=== PATIENT | female | born 1975 | race Caucasian/White ===

== ENCOUNTER → 2018-07-08 | Outpatient (CLI) | payer BC ==
--- NOTE | 2018-07-09 06:22 | MR ---
EXAMINATION TYPE: MR brain wo con DATE OF EXAM: 07/08/2018 COMPARISON: NONE HISTORY: Headaches, dizziness TECHNIQUE: Multiplanar, multisequence imaging of the brain and brainstem is performed without IV cont rast. FINDINGS: Diffusion weighted images demonstrate no evidence of a recent infarct or other diffusion abnormality. There is no extraaxial fluid collection or significant white matter signal abnormality. The ventricu lar system and cisternal spaces are normal in size and appearance. The brain volume is age appropria te. Midline structures demonstrate normal morphology. The craniocervical junction appears within normal limits. Normal vascular flow voids are present. The visualized sinuses are clear and the globes are i ntact. No significant increased fluid signal is seen in mastoid air cells bilaterally. IMPRESSION: No suspicious finding is seen to account for patient's symptoms of headaches and dizzines s.
== END | disposition home or self-care (01) ==
LOC: RADMRIMAIN 19:57
PROVIDERS: ATTEND Family Medicine
DX: R51 Headache (principal)
CPT/HCPCS: 70551

== ENCOUNTER → 2018-08-27 | Outpatient (CLI) | payer BC ==
--- NOTE | 2018-08-28 10:07 | ECHOF ---
Referral Reason: MEASUREMENTS -------- HEIGHT: 167.6 cm WEIGHT: 65.8 kg BP: RVIDd: 3.0 cm (< 3.3) IVSd: 0.8 cm (0.6 - 1.1) LVIDd: 4.2 cm (3.9 - 5.3) LVPWd: 0.9 cm (0.6 - 1.1) IVSs: 1.3 cm LVIDs: 2.1 cm LVPWs: 1.4 cm LAESV Index (A-L): 14.36 ml/m Ao Diam: 2.6 cm (2.0 - 3.7) AV Cusp: 1.8 cm (1.5 - 2.6) LA Diam: 2.6 cm (2.7 - 3.8) MV EXCURSION: 10.933 mm (> 18.000) MV EF SLOPE: 144 mm/s (70 - 150) EPSS: 0.5 cm MV E Jagdish: 1.12 m/s MV DecT: 170 ms MV A Jagdish: 0.87 m/s MV E/A Ratio: 1.29 RAP: 5.00 mmHg RVSP: 27.14 mmHg FINDINGS -------- Sinus rhythm. This was a technically good study. The left ventricular size is normal. Left ventricular wall thickness is normal. Overall left vent ricular systolic function is normal with, an EF between 55 - 60 %. The right ventricle is normal in size. Normal LA size by volume 22+/-6 ml/m2. The right atrial size is normal. Interatrial and interventricular septum intact. The aortic valve is trileaflet and appears structurally normal. Mild mitral regurgitation is present. 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 Moderate tricuspid regurgitation present. The right ventricular systolic pressure, as measured by D oppler, is 27.14mmHg. There is no pulmonic regurgitation present. The aortic root size is normal. Normal inferior vena cava with normal inspiratory collapse consistent with estimated right atrial pre ssure of 5 mmHg. Echo free space may represent effusion or a pericardial fat pad. CONCLUSIONS -------- 1. Sinus rhythm. 2. This was a technically good study. 3. The left ventricular size is normal. 4. Left ventricular wall thickness is normal. 5. Overall left ventricular systolic function is normal with, an EF between 55 - 60 %. 6. The right ventricle is normal in size. 7. Normal LA size by volume 22+/-6 ml/m2. 8. The right atrial size is normal. 9. Interatrial and interventricular septum intact. 10. The aortic valve is trileaflet and appears structurally normal. 11. Mild mitral regurgitation is present. 12. Cannot exclude mitral valve prolapse. 13. , predominately a posteriorly directed jet. 14. Moderate tricuspid regurgitation present. 15. The right ventricular systolic pressure, as measured by Doppler, is 27.14mmHg. 16. There is no pulmonic regurgitation present. 17. The aortic root size is normal. 18. Normal inferior vena cava with normal inspiratory collapse consistent with estimated right atrial pressure of 5 mmHg. 19. Echo free space may represent effusion or a pericardial fat pad. ASSEMBLER CRIMPER: Milagros Toth RDCS
== END ==
LOC: RADECHMAIN 11:22
PROVIDERS: ATTEND Family Medicine
DX: I08.1 Rheumatic disorders of both mitral and tricuspid valves (principal)
CPT/HCPCS: 93306

== ENCOUNTER → 2018-09-09 | Outpatient (CLI) | payer BC ==
--- NOTE | 2018-09-09 22:56 | MR ---
EXAMINATION TYPE: MR lumbar spine wo/w con DATE OF EXAM: 09/09/2018 COMPARISON: NONE HISTORY: Low back pain per order. Pain for over 10 years into right lower extremity per patient. TECHNIQUE: Multiplanar, multisequence images of the lumbar spine is performed without and with IV contrast, util izing 7 mL intravenous Gadavist FINDINGS: Sagittal images of the lumbar spine show vertebral body heights and alignment to appear sat isfactory. There is disc desiccation with mild disc space narrowing and posterior annular tear at L5- S1 level. The intervertebral discs otherwise demonstrate normal heights and hydration. The conus med ullaris is normal in position and signal ending mid L1 level. 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 The bone marrow signal intensity is within normal limits. No suspicious post contrast enhancement is seen. Axial images show the T12-L1, L1-L2, L2-L3, L3-L4 levels all to appear within normal limits. Axial images at L4-L5 level show mild facet degenerative changes bilaterally. Axial images at L5-S1 level show mild facet degenerative changes bilaterally with tiny right paracent ral disc protrusion minimally effacing the anterior thecal sac, bilateral neural foramina are patent. IMPRESSION: Some mild degenerative changes lower lumbar spine most prominent L5-S1 level as detailed above
== END | disposition home or self-care (01) ==
LOC: RADMRIMAIN 17:04
PROVIDERS: ATTEND Family Medicine
DX: M47.817 Spondylosis without myelopathy or radiculopathy, lumbosacral region (principal)
CPT/HCPCS: 72158; A9585

== ENCOUNTER 2020-06-23 17:30 | Inpatient (IN) | payer BC ==
[2020-06-23] MEDS ORDERED: ACETAMINOPHEN TAB 500 MG TAB PO STA (17:44)
[2020-06-23] MEDS ORDERED: SODIUM CHLORIDE 0.9% 1,000 ML IV STA (17:44)
[2020-06-23] MEDS ORDERED: IBUPROFEN 600 MG TAB PO STA (17:44)
[2020-06-23 18:36] LABS: Anisocytosis Slight; Basophils % (A) 0 %; Eosinophils # (A) 0.2 k/uL (0-0.7); Eosinophils % (A) 2 %; HCT 39.3 % (34.0-46.0); HGB 13.2 gm/dL (11.4-16.0); Lymphocytes # (A) 0.9 k/uL (1.0-4.8); Lymphocytes % (A) 8 %; MCH 29.1 pg (25.0-35.0); MCHC 33.7 g/dL (31.0-37.0); MCV 86.4 fL (80.0-100.0); Mean Platelet Volume 7.4; Monocytes # (A) 0.4 k/uL (0-1.0); Monocytes % (A) 4 %; Neutrophils # (A) 9.2 k/uL (1.3-7.7); Neutrophils % (A) 85 %; Platelet Count 263 k/uL (150-450); RBC 4.55 m/uL (3.80-5.40); WBC 10.8 k/uL (3.8-10.6)
[2020-06-23 18:40] LABS: Appearance,Urine Clear (Clear); Bilirubin,Urine Negative (Negative); Blood,Urine Trace (Negative); Color,Urine Light Yellow; Glucose,Urine (UA) Negative (Negative); Ketones,Urine 1+ (Negative); Leukocyte Esterase,Urine Small (Negative); Nitrite,Urine Negative (Negative); Protein,Urine Negative (Negative); RBC,Urine 1 /hpf (0-5); Specific Gravity,Urine 1.009 (1.001-1.035); Squamous Epithelial Cell,Urine 1 /hpf (0-4); Urobilinogen,Urine <2.0 mg/dL (<2.0); WBC,Urine 1 /hpf (0-5)
[2020-06-23 18:47] LABS: ALT 18 U/L (4-34); AST 27 U/L (14-36); African American GFR (CKD) >90 (>60 ml/min/1.73 sqM); Albumin 4.3 g/dL (3.5-5.0); Alkaline Phosphatase 56 U/L (38-126); Anion Gap 10 mmol/L; Blood Urea Nitrogen 12 mg/dL (7-17); Calcium 9.2 mg/dL (8.4-10.2); Carbon Dioxide 20 mmol/L (22-30); Chloride 105 mmol/L (98-107); Glucose 111 mg/dL (74-99); Non-African American GFR(CKD) >90 (>60 ml/min/1.73 sqM); Potassium 4.1 mmol/L (3.5-5.1); Sodium 135 mmol/L (137-145); Total Bilirubin 0.8 mg/dL (0.2-1.3); Total Protein 7.4 g/dL (6.3-8.2)
--- NOTE | 2020-06-23 18:47 | XR ---
EXAMINATION TYPE: XR chest 1V portable DATE OF EXAM: 06/23/2020 COMPARISON: NONE HISTORY: Fever. TECHNIQUE: Single frontal view of the chest is obtained. FINDINGS: There is no focal air space opacity, pleural effusion, or pneumothorax seen. The cardiac silhouette size is within normal limits. The osseous structures are intact. IMPRESSION: No acute process.
--- NOTE | 2020-06-23 19:13 | ED ---
Fever HPI - General Chief Complaint: Fever Stated Complaint: Tachycardia, possible sepsis, fever Time Seen by Provider: 06/23/20 17:43 Source: patient Mode of arrival: ambulatory Limitations: no limitations - History of Present Illness Initial Comments: Patient complains of fever. She saw her physician today. They were concern for sepsis. Patient has palpitations. She has no shortness of breath. She has no belly pain. She has no chest pain. She states that she has a rectal fissure. Her doctor was concerned for bacteremia from this source. She has no dysuria. She has no trouble in her. She is unaware of sick contacts. She has taken no m edicine for her symptoms. - Related Data Allergies Allergy/AdvReac Type Severity Reaction Status Date / Time fluconazole [From Diflucan] Allergy Unknown Verified 06/23/20 17:37 Review of Systems ROS Statement: Those systems with pertinent positive or pertinent negative responses have been documented in the HPI. ROS Other: All systems not noted in ROS Statement are negative. Past Medical History Additional Past Medical History / Comment(s): hemrrhoids, anal fissure History of Any Multi-Drug Resistant Organisms: None Reported Past Surgical History: Section, Cholecystectomy, Hysterectomy Additional Past Surgical History / Comment(s): hemmrhoidrectomy Past Psychological History: No Psychological Hx Reported Smoking Status: Never smoker Past Alcohol Use History: Rare Past Drug Use History: None Reported General Exam Limitations: no limitations General appearance: alert, in no apparent distress Head exam: Present: atraumatic, normocephalic, normal inspection Eye exam: Present: normal appearance, PERRL, EOMI. Absent: scleral icterus, c onjunctival injection, periorbital swelling ENT exam: Present: normal exam, mucous membranes moist Neck exam: Present: normal inspection. Absent: tenderness, meningismus, lymphadenopathy Respiratory exam: Present: normal lung sounds bilaterally. Absent: respiratory distress, wheezes, rales, rhonchi, stridor Cardiovascular Exam: Present: regular rate, normal rhythm, normal heart sounds. Absent: systolic murmur, diastolic murmur, rubs, gallop, clicks GI/Abdominal exam: Present: soft, normal bowel sounds. Absent: distended, tenderness, guarding, rebound, rigid Extremities exam: Present: normal inspection, full ROM, normal capillary refill. Absent: tenderness, pedal edema, joint swelling, calf tenderness Back exam: Present: normal inspection Neurological exam: Present: alert, oriented X3, CN II-XII intact Psychiatric exam: Present: normal affect, normal mood Skin exam: Present: warm, dry, intact, normal color. Absent: rash Course Vital Signs 06/23/20 06/23/20 06/23/20 17:33 17:45 18:00 Temperature 99.0 F 100.1 F H 100.1 F H Pulse Rate 122 H 115 H 104 H Respiratory 20 16 18 Rate Blood Pressure 106/70 119/65 129/85 O2 Sat by Pulse 96 97 97 Oximetry 06/23/20 06/23/20 18:15 18:30 Temperature 100 F H 99.8 F H Pulse Rate 115 H 99 Respiratory 18 18 Rate Blood Pressure 124/75 116/47 O2 Sat by Pulse 98 98 Oximetry Medical Decision Making - Medical Decision Making Patient presents with possible bacteremia. - Lab Data Result diagrams: 06/23/20 18:18 06/23/20 18:18 Lab Results 06/23/20 06/23/20 06/23/20 Range/Units 18:18 18:18 18:18 WBC 10.8 H (3.8-10.6) k/uL RBC 4.55 (3.80-5.40) m/uL Hgb 13.2 (11.4-16.0) gm/dL Hct 39.3 (34.0-46.0) % MCV 86.4 (80.0-100.0) fL MCH 29.1 (25.0-35.0) pg MCHC 33.7 (31.0-37.0) g/dL RDW 17.0 H (11.5-15.5) % Plt Count 263 (150-450) k/uL MPV 7.4 Neutrophils % 85 % Lymphocytes % 8 % Monocytes % 4 % Eosinophils % 2 % Basophils % 0 % Neutrophils # 9.2 H (1.3-7.7) k/uL Lymphocytes # 0.9 L (1.0-4.8) k/uL Monocytes # 0.4 (0-1.0) k/uL Eosinophils # 0.2 (0-0.7) k/uL Basophils # 0.0 (0-0.2) k/uL Anisocytosis Slight Sodium 135 L (137-145) mmol/L Potassium 4.1 (3.5-5.1) mmol/L Chloride 105 (98-107) mmol/L Carbon Dioxide 20 L (22-30) mmol/L Anion Gap 10 mmol/L BUN 12 (7-17) mg/dL Creatinine 0.63 (0.52-1.04) mg/dL Est GFR (CKD-EPI)AfAm >90 (>60 ml/min/1.73 sqM) Est GFR (CKD-EPI)NonAf >90 (>60 ml/min/1.73 sqM) Glucose 111 H (74-99) mg/dL Plasma Lactic Acid Jorge (0.7-2.0) mmol/L Calcium 9.2 (8.4-10.2) mg/dL Total Bilirubin 0.8 (0.2-1.3) mg/dL AST 27 (14-36) U/L ALT 18 (4-34) U/L Alkaline Phosphatase 56 (38-126) U/L Total Protein 7.4 (6.3-8.2) g/dL Albumin 4.3 (3.5-5.0) g/dL Urine Color Light Yellow Urine Appearance Clear (Clear) Urine pH 7.0 (5.0-8.0) Ur Specific [place] 1.009 (1.001-1.035) Urine Protein Negative (Negative) Urine Glucose (UA) Negative (Negative) Urine Ketones 1+ H (Negative) Urine Blood Trace H (Negative) Urine Nitrite Negative (Negative) Urine Bilirubin Negative (Negative) Urine Urobilinogen <2.0 (<2.0) mg/dL Ur Leukocyte Esterase Small H (Negative) Urine RBC 1 (0-5) /hpf Urine WBC 1 (0-5) /hpf Ur Squamous Epith Cells 1 (0-4) /hpf Influenza Type A RNA (Not Detectd) Influenza Type B (PCR) (Not Detectd) 06/23/20 06/23/20 Range/Units 18:18 18:18 WBC (3.8-10.6) k/uL RBC (3.80-5.40) m/uL Hgb (11.4-16.0) gm/dL Hct (34.0-46.0) % MCV (80.0-100.0) fL MCH (25.0-35.0) pg MCHC (31.0-37.0) g/dL RDW (11.5-15.5) % Plt Count (150-450) k/uL MPV Neutrophils % % Lymphocytes % % Monocytes % % Eosinophils % % Basophils % % Neutrophils # (1.3-7.7) k/uL Lymphocytes # (1.0-4.8) k/uL Monocytes # (0-1.0) k/uL Eosinophils # (0-0.7) k/uL Basophils # (0-0.2) k/uL Anisocytosis Sodium (137-145) mmol/L Potassium (3.5-5.1) mmol/L Chloride (98-107) mmol/L Carbon Dioxide (22-30) mmol/L Anion Gap mmol/L BUN (7-17) mg/dL Creatinine (0.52-1.04) mg/dL Est GFR (CKD-EPI)AfAm (>60 ml/min/1.73 sqM) Est GFR (CKD-EPI)NonAf (>60 ml/min/1.73 sqM) Glucose (74-99) mg/dL Plasma Lactic Acid Jorge 0.8 (0.7-2.0) mmol/L Calcium (8.4-10.2) mg/dL Total Bilirubin (0.2-1.3) mg/dL AST (14-36) U/L ALT (4-34) U/L Alkaline Phosphatase (38-126) U/L Total Protein (6.3-8.2) g/dL Albumin (3.5-5.0) g/dL Urine Color Urine Appearance (Clear) Urine pH (5.0-8.0) Ur Specific [place] (1.001-1.035) Urine Protein (Negative) Urine Glucose (UA) (Negative) Urine Ketones (Negative) Urine Blood (Negative) Urine Nitrite (Negative) Urine Bilirubin (Negative) Urine Urobilinogen (<2.0) mg/dL Ur Leukocyte Esterase (Negative) Urine RBC (0-5) /hpf Urine WBC (0-5) /hpf Ur Squamous Epith Cells (0-4) /hpf Influenza Type A RNA Not Detected (Not Detectd) Influenza Type B (PCR) Not Detected (Not Detectd) Disposition Clinical Impression: Bacteremia Disposition: ADMITTED IP TO THIS HOSP Condition: Fair Is patient prescribed a controlled substance at d/c from ED?: No Referrals: Helder Conde MD [Primary Care Provider] - 1-2 days
[2020-06-23] MEDS ORDERED: MORPHINE SULFATE 4 MG/ML SYRINGE IV PRN (19:30)
[2020-06-23] MEDS ORDERED: HYDROcodone/APAP 5-325MG 1 EACH TAB PO PRN (19:30)
[2020-06-23] MEDS ORDERED: NALOXONE 0.4 MG/ML 1 ML VIAL IV PRN (19:30)
[2020-06-23] MEDS ORDERED: metroNIDAZOLE-NS PMX 500 MG in SALINE 1 100ML.BAG IVPB STA (19:47)
[2020-06-23] MEDS: SODIUM CHLORIDE 0.9% 1,000 ML IV SCH (20:07)
[2020-06-24] MEDS: SODIUM CHLORIDE 0.9% 1,000 ML IV SCH ×2 (01:50→10:38)
[2020-06-24] MEDS: CHOLECALCIFEROL 25 MCG (1000 IU) TABLET PO SCH (07:44)
[2020-06-24] MEDS ORDERED: NON FORMULARY DRUG (Biotin [Biotin] 10,000 MCG Capsule) PO SCH (09:00)
[2020-06-24] MEDS ORDERED: ACETAMINOPHEN TAB 325 MG TAB PO PRN (09:25)
[2020-06-24] MEDS: ONDANSETRON 4 MG/2 ML VIAL IVP PRN ×2 (10:37→22:07)
[2020-06-24] MEDS ORDERED: HYDROmorphone 1 MG/ML 1 ML SYRINGE IVP STA (10:49)
[2020-06-24 11:02] LABS: Amylase 73 U/L (30-110); Lipase 88 U/L (23-300)
[2020-06-24] MEDS: LORazepam 2 MG/ML INJ IV PRN (11:06)
--- NOTE | 2020-06-24 11:49 | P.GSCN ---
History of Present Illness Consult date: 06/24/20 Reason for Consult: Anal fissure History of present illness: Is a 45-year-old female who is admitted to the hospital with complaints of some abdominal pain and workup of fever and sepsis. The patient had complaints of severe chest pain this morning.. She is undergoing workup for a PE. Patient describes pain which radiates to her back. It is in the epigastric area. She's had a previous laparoscopic cholecystectomy. Past Medical History Additional Past Medical History / Comment(s): hemrrhoids, anal fissure History of Any Multi-Drug Resistant Organisms: None Reported Past Surgical History: Section, Cholecystectomy, Hysterectomy Additional Past Surgical History / Comment(s): hemmrhoidrectomy Past Anesthesia/Blood Transfusion Reactions: Postoperative Nausea & Vomiting (PONV) Past Psychological History: No Psychological Hx Reported Smoking Status: Former smoker Past Alcohol Use History: Rare Past Drug Use History: None Reported - Past Family History Sister(s) Additional Family Medical History / Comment(s): DEPRESSION Mother Family Medical History: Dementia, Diabetes Mellitus Son(s) Additional Family Medical History / Comment(s): ULCERATIVE COLITIS Medications and Allergies Home Medications Medication Instructions Recorded Confirmed Type Ascorbic Acid [Vitamin C] 500 mg PO DAILY 06/23/20 06/23/20 History Biotin 10,000 mcg PO DAILY 06/23/20 06/23/20 History Cholecalciferol [Vitamin D3 (25 50 mcg PO DAILY 06/23/20 06/23/20 History Mcg = 1000 Iu)] Multivitamins, Thera [Multivitamin 1 tab PO DAILY 06/23/20 06/23/20 History (formulary)] Allergies Allergy/AdvReac Type Severity Reaction Status Date / Time fluconazole [From Diflucan] Allergy Unknown Verified 06/23/20 19:25 Surgical - Exam Vital Signs Temp Pulse Resp BP Pulse Ox 99.0 F 122 H 20 106/70 96 06/23/20 17:33 06/23/20 17:33 06/23/20 17:33 06/23/20 17:33 06/23/20 17:33 - General well developed, well nourished, no distress - Eyes PERRL - ENT normal pinna - Neck no masses - Respiratory normal expansion - Cardiovascular Rhythm: regular - Abdomen Mild tenderness throughout. There is no rebound or guarding. Abdomen: soft Results - Labs 06/23/20 18:18 06/23/20 18:18 Abnormal Lab Results - Last 24 Hours (Table) 06/23/20 06/23/20 06/23/20 Range/Units 18:18 18:18 18:18 WBC 10.8 H (3.8-10.6) k/uL RDW 17.0 H (11.5-15.5) % Neutrophils # 9.2 H (1.3-7.7) k/uL Lymphocytes # 0.9 L (1.0-4.8) k/uL Sodium 135 L (137-145) mmol/L Carbon Dioxide 20 L (22-30) mmol/L Glucose 111 H (74-99) mg/dL Urine Ketones 1+ H (Negative) Urine Blood Trace H (Negative) Ur Leukocyte Esterase Small H (Negative) Diabetes panel 06/23/20 Range/Units 18:18 Sodium 135 L (137-145) mmol/L Potassium 4.1 (3.5-5.1) mmol/L Chloride 105 (98-107) mmol/L Carbon Dioxide 20 L (22-30) mmol/L BUN 12 (7-17) mg/dL Creatinine 0.63 (0.52-1.04) mg/dL Glucose 111 H (74-99) mg/dL Calcium 9.2 (8.4-10.2) mg/dL AST 27 (14-36) U/L ALT 18 (4-34) U/L Alkaline Phosphatase 56 (38-126) U/L Total Protein 7.4 (6.3-8.2) g/dL Albumin 4.3 (3.5-5.0) g/dL Calcium panel 06/23/20 Range/Units 18:18 Calcium 9.2 (8.4-10.2) mg/dL Albumin 4.3 (3.5-5.0) g/dL Pituitary panel 06/23/20 Range/Units 18:18 Sodium 135 L (137-145) mmol/L Potassium 4.1 (3.5-5.1) mmol/L Chloride 105 (98-107) mmol/L Carbon Dioxide 20 L (22-30) mmol/L BUN 12 (7-17) mg/dL Creatinine 0.63 (0.52-1.04) mg/dL Glucose 111 H (74-99) mg/dL Calcium 9.2 (8.4-10.2) mg/dL Adrenal panel 06/23/20 Range/Units 18:18 Sodium 135 L (137-145) mmol/L Potassium 4.1 (3.5-5.1) mmol/L Chloride 105 (98-107) mmol/L Carbon Dioxide 20 L (22-30) mmol/L BUN 12 (7-17) mg/dL Creatinine 0.63 (0.52-1.04) mg/dL Glucose 111 H (74-99) mg/dL Calcium 9.2 (8.4-10.2) mg/dL Total Bilirubin 0.8 (0.2-1.3) mg/dL AST 27 (14-36) U/L ALT 18 (4-34) U/L Alkaline Phosphatase 56 (38-126) U/L Total Protein 7.4 (6.3-8.2) g/dL Albumin 4.3 (3.5-5.0) g/dL Assessment and Plan Assessment: Epigastric abdominal pain. Unsure of etiology. Patient did have some mild fevers last night. She is scheduled for computed tomography scan of the chest evaluate for possible PE. We'll also had computed tomography scan of the abdomen pelvis. She'll receive supportive care.
--- NOTE | 2020-06-24 12:05 | CT ---
EXAMINATION TYPE: CT chest angio for PE DATE OF EXAM: 06/24/2020 COMPARISON: Chest radiograph 06/23/2020 HISTORY: 45-year-old female SOB and Chest pain TECHNIQUE: Contiguous axial scanning of the chest performed with IV Contrast, patient injected with 1 00 ml mL of Isovue 370. Coronal/sagittal MIP reconstructions performed. CT DLP: 1614.80 mGycm Automated exposure control for dose reduction was used. FINDINGS: Heart normal size with small anterior pericardial fluid measuring 5 mm. No reflux of contrast into th e hepatic veins. No flattening of the interventricular septum. Aorta normal caliber with bovine configuration to the aortic arch. There appears to be an underlying 1.8 cm hypodense nodule in the right lobe of the thyroid gland. No thoracic lymphadenopathy by CT size criteria. Satisfactory opacification of the pulmonary arterial system without evidence for pulmonary embolus. There is mild biapical pleural parenchymal scarring noted. Mild diffuse bronchial wall thickening. Sc attered strandy atelectasis is demonstrated. No consolidation or pleural effusion. Small hiatal hernia. Bones: No osseous destructive process. IMPRESSION: 1. NO EVIDENCE FOR PULMONARY EMBOLUS. 2. SMALL ANTERIOR PERICARDIAL EFFUSION MEASURING 5 MM OF QUESTIONABLE SIGNIFICANCE. CLINICALLY CORREL ATE. 3. CORRELATE FOR POSSIBLE UNDERLYING ASTHMA OR MILD BRONCHITIS. NO FOCAL INFILTRATE. 4. SMALL HIATAL HERNIA.
--- NOTE | 2020-06-24 12:16 | CT ---
EXAMINATION TYPE: CT abdomen pelvis w con DATE OF EXAM: 06/24/2020 COMPARISON: NONE HISTORY: 45-year-old female SOB, chest pain and severe abdominal pain TECHNIQUE: Contiguous axial scanning of the abdomen and pelvis following administration of 100 ml Iso ifeoma 300 IV contrast. Delayed images through the kidneys and coronal/sagittal reconstructions perform ed. CT DLP: 1614.80 mGycm Automated exposure control for dose reduction was used. FINDINGS: Chest reported separately. Again, small hiatal hernia. Liver is borderline in size at 17.7 cm. There is very heterogeneous enhancement of the liver. Portal venous system is patent. The bile duct is dilated up to 9 mm there seems to be distal tapering. Mild intrahepatic prominence t o the biliary system as well. Patient is status post cholecystectomy which may account for this tolbert e. Adrenal glands, kidneys, spleen, pancreas show no gross anomaly. No dilated small bowel or free air. There is mild interloop ascites within the left midabdomen, axial image 46. While the appendix is not well seen, no secondary findings of acute appendicitis are appreciated. There is an approximate 15 cm long segment of ascending colon that shows moderate edematous wall thic kening and mucosal hyperemia, for example, refer to axial image 52 and coronal images 42 and 28. Scattered mild stool burden. No mesenteric or retroperitoneal lymphadenopathy identified. Bladder urine distended. Peripherally enhancing thin-walled cyst measuring 1.7 cm of the left ovary. Right ovary not clearly s een. Uterus surgically absent. Mild pelvic free fluid. Bones: No osseous destructive process. IMPRESSION: 1. ASCENDING COLITIS WITH MODERATE WALL THICKENING. CORRELATE FOR INFECTIOUS OR INFLAMMATORY CAUSES I NCLUDING THE POSSIBILITY OF INFLAMMATORY BOWEL DISEASE. 2. VERY HETEROGENEOUS ENHANCEMENT OF THE LIVER. CORRELATE TO EXCLUDE HEPATITIS OR OTHER NONSPECIFIC H EPATOCELLULAR DISEASE. 3. BILE DUCT IS MILDLY DILATED UP TO 9 MM. HOWEVER, THERE IS NORMAL EXPECTED DISTAL TAPERING AND CARMEN ENT IS STATUS POST CHOLECYSTECTOMY WHICH MAY ACCOUNT FOR THIS FINDING. CORRELATE WITH ALKALINE PHOSPH ATASE AND BILIRUBIN LEVELS TO EXCLUDE EARLY BILIARY OBSTRUCTION. 4. THERE IS MILD INTERLOOP ASCITES IN THE LEFT MIDABDOMEN AND MILD PELVIC FREE FLUID. THIS MAY BE SOHAIL CTIVE TO THE INFLAMMATION IN THE RIGHT SIDE OF THE COLON AND/OR LIVER. 5. SUSPECT A DOMINANT FOLLICLE OR FUNCTIONAL CYST MEASURING 1.7 CM IN THE LEFT OVARY.
[2020-06-24 12:39] LABS: Anisocytosis Slight; Basophils % (A) 0 %; Eosinophils # (A) 0.1 k/uL (0-0.7); Eosinophils % (A) 2 %; HCT 37.8 % (34.0-46.0); HGB 12.2 gm/dL (11.4-16.0); Hypochromasia Slight; Lymphocytes # (A) 1.2 k/uL (1.0-4.8); Lymphocytes % (A) 34 %; MCH 29.7 pg (25.0-35.0); MCHC 32.4 g/dL (31.0-37.0); Mean Platelet Volume 8.3; Monocytes # (A) 0.3 k/uL (0-1.0); Monocytes % (A) 8 %; Neutrophils # (A) 1.9 k/uL (1.3-7.7); Neutrophils % (A) 54 %; Platelet Count 222 k/uL (150-450); RBC 4.12 m/uL (3.80-5.40); RDW 17.5 % (11.5-15.5); WBC 3.5 k/uL (3.8-10.6)
[2020-06-24 13:02] LABS: MCV 91.8 fL (80.0-100.0)
[2020-06-24] MEDS: DEXTROSE 5%-0.9% NACL 1,000 ML IV SCH (14:12)
[2020-06-24] MEDS: ENOXAPARIN 40 MG/0.4 ML SYRINGE SQ SCH (14:13)
[2020-06-24] MEDS: LIDOCAINE 2% GEL 30 ML TUBE TOPICAL SCH ×2 (14:14→21:35)
[2020-06-24] MEDS: PIPERACILLIN-TAZOBACTAM 3.375 GM in SODIUM CHLORIDE 0.9% 100 ML IVPB SCH (15:35)
[2020-06-24] MEDS ORDERED: NAPROXEN 250 MG TAB PO SCH (16:00)
--- NOTE | 2020-06-24 23:13 | P.HPIM ---
History of Present Illness H&P Date: 06/24/20 Chief Complaint: Abdominal pain History of presenting complaint: This is a pleasant 45-year-old patient of Dr. Helder Conde. Patient has a long- standing history of hemorrhoids. In April she was diagnosed to have annual fissure. Did use a Eucerin cream. Did improve for some time. 2 weeks ago started bleeding again with bowel movements. Increasing pain. Normally patient has a one bowel movement a day. Also started having some chills. Also complaining of abdominal pain. Has been having low-grade fevers. Says been here. Not feeling well. Some nausea. Passing stool is a painful for her Review of systems: GEN.: Not feeling well EYES: None HEENT: None NECK: None RESPIRATORY: None CARDIOVASCULAR: None GASTROINTESTINAL: As above GENITOURINARY: None MUSCULOSKELETAL: None LYMPHATICS: None HEMATOLOGICAL: None PSYCHIATRY: Anxious NEUROLOGICAL: None Past medical history to include: Hemorrhoids, anal fissure Social history: Lives with family. Does not smoke or drink alcohol. Physical examination: VITAL SIGNS: 100.1, 115, 16, 119/65, 97% room air GENERAL: BMI 24.8, laying in bed, but uncomfortable. EYES: Pupils equal. Conjunctiva normal. HEENT: External appearance of nose and ears normal, oral cavity grossly normal. NECK: JVD not raised; masses not palpable. HEART: First and second heart sounds are normal; no edema. LUNGS: Respiratory rate normal; clear to auscultation. ABDOMEN: Soft, lower abdominal tenderness, no guarding rigidity, liver spleen not palpable, no masses palpable. EXAMINATION of the perianal area: Done in the presence of nurse entry level finance Pratibha patient has external hemorrhoids at 5:00 and 3 o'clock position. Tender . There appears to be a posterior fissure PSYCH: [Alert and oriented x3; mood and affect anxious l. NEUROLOGICAL: Cranial nerves grossly intact; no facial asymmetry, power and sensation grossly intact. LYMPHATICS: No lymph nodes palpable in the axilla and neck INVESTIGATIONS, reviewed in the clinical context: White count 10.8 hemoglobin 13.2 platelets 263 potassium 4.1 creatinine 0.63 Coronavirus [PCR]-not detected Chest x-ray film personally reviewed by me-clear Chest CTA-no PE. Other nonspecific findings CT abdomen pelvis with contrast-heterogenous enhancement of the liver. Bile d uct 9 mm status post cholecystectomy. 15 cm long segment of ascending colon that shows moderate edema dose wall thickening and mucosal-thickening Assessment: -Acute ascending colitis, possibly infectious. Started on clear liquids. IV Zosyn -Painful external hemorrhoids -Anal fissure. Use topical lidocaine gel before BM -DVT prophylaxis. Subcu Lovenox Plan: Patient is on IV Zosyn. IV fluids. General surgery was initially consulted. Also get a GI consultation. Educated patient overusing lidocaine jelly with and also before bowel movements. Questions were answered Past Medical History Additional Past Medical History / Comment(s): hemrrhoids, anal fissure History of Any Multi-Drug Resistant Organisms: None Reported Past Surgical History: Section, Cholecystectomy, Hysterectomy Additional Past Surgical History / Comment(s): hemmrhoidrectomy Past Anesthesia/Blood Transfusion Reactions: Postoperative Nausea & Vomiting (PONV) Past Psychological History: No Psychological Hx Reported Smoking Status: Former smoker Past Alcohol Use History: Rare Past Drug Use History: None Reported - Past Family History Sister(s) Additional Family Medical History / Comment(s): DEPRESSION Mother Family Medical History: Dementia, Diabetes Mellitus Son(s) Additional Family Medical History / Comment(s): ULCERATIVE COLITIS Medications and Allergies Home Medications Medication Instructions Recorded Confirmed Type Ascorbic Acid [Vitamin C] 500 mg PO DAILY 06/23/20 06/23/20 History Biotin 10,000 mcg PO DAILY 06/23/20 06/23/20 History Cholecalciferol [Vitamin D3 (25 50 mcg PO DAILY 06/23/20 06/23/20 History Mcg = 1000 Iu)] Multivitamins, Thera [Multivitamin 1 tab PO DAILY 06/23/20 06/23/20 History (formulary)] Allergies Allergy/AdvReac Type Severity Reaction Status Date / Time fluconazole [From Diflucan] Allergy Unknown Verified 06/23/20 19:25 Physical Exam Vitals: Vital Signs Temp Pulse Pulse Resp BP BP Pulse Ox 06/24/20 09:53 71 20 115/73 100 06/24/20 09:36 16 06/24/20 07:00 98.0 F 61 16 95/61 99 06/24/20 02:00 98.4 F 71 16 95/56 98 06/23/20 21:41 98.4 F 78 16 111/66 98 06/23/20 20:59 98.8 F 77 18 100/54 98 06/23/20 19:36 99.8 F H 90 17 108/64 99 06/23/20 18:45 99.9 F H 99 16 124/75 98 06/23/20 18:30 99.8 F H 99 18 116/47 98 06/23/20 18:15 100 F H 115 H 18 124/75 98 06/23/20 18:00 100.1 F H 104 H 18 129/85 97 06/23/20 17:45 100.1 F H 115 H 16 119/65 97 06/23/20 17:33 99.0 F 122 H 20 106/70 96 Intake and Output 06/23/20 06/24/20 06/24/20 22:59 06:59 14:59 Intake Total 250 750 Balance 250 750 Intake: IV 150 750 Sodium Chloride 0.9% 1, 150 750 000 ml @ 150 mls/hr IV . Q6H40M [facility] Rx#:[id number] Intake, IV Titration 100 Amount metroNIDAZOLE-NS PMX 500 100 mg In Saline 1 100ml.bag @ 100 mls/hr IVPB [facility] Rx#:[id number] Other: Voiding Method Toilet # Voids 1 Weight 67.585 kg Results CBC & Chem 7: 06/24/20 09:41 06/23/20 18:18 Labs: Abnormal Lab Results - Last 24 Hours (Table) 06/23/20 06/23/20 06/23/20 Range/Units 18:18 18:18 18:18 WBC 10.8 H (3.8-10.6) k/uL RDW 17.0 H (11.5-15.5) % Neutrophils # 9.2 H (1.3-7.7) k/uL Lymphocytes # 0.9 L (1.0-4.8) k/uL Sodium 135 L (137-145) mmol/L Carbon Dioxide 20 L (22-30) mmol/L Glucose 111 H (74-99) mg/dL Urine Ketones 1+ H (Negative) Urine Blood Trace H (Negative) Ur Leukocyte Esterase Small H (Negative) Thrombosis Risk Factor Assmnt - Choose All That Apply Any of the Below Risk Factors Present?: Yes Each Factor Represents 1 point: Age 41-60 years Other Risk Factors: No Other congenital or acquired thrombophilia - If yes, enter type in comment: No Thrombosis Risk Factor Assessment Total Risk Factor Score: 1 Thrombosis Risk Factor Assessment Level: Low Risk
[2020-06-25] MEDS: DEXTROSE 5%-0.9% NACL 1,000 ML IV SCH ×5 (00:03→23:16)
[2020-06-25] MEDS: PIPERACILLIN-TAZOBACTAM 3.375 GM in SODIUM CHLORIDE 0.9% 100 ML IVPB SCH ×4 (00:18→23:16)
--- NOTE | 2020-06-25 01:31 | CONS ---
CONSULTATION DATE OF SERVICE: 06/24/2020 REASON FOR STAY: Bacteremia and colitis. HISTORY OF PRESENT ILLNESS: The patient is a 45-year-old female with past medical history and currently being treated in outpatient setting. The patient was sent to the ER by her primary care physician yesterday with concern for possible bacteremia from her rectal fissure. The patient complaining of pain to the pelvic area and also pain to the left lower abdominal area. The patient described the pain to be sharp in nature about 6 to 7 out of 10, and no radiation. The patient denies having any headache, chest pain, shortness of breath or cough. No abdominal pain. No diarrhea. On presentation to the hospital did have low-grade fever 100.1 degrees Fahrenheit. The patient did have a white count of 10.8. Repeat is 7.5 with a left shift. Creatinine was normal. Procalcitonin 0.52, urine negative. Woods influenza PCR was negative. The patient did have blood cultures drawn which is so far pending. The patient did have a CT of abdomen and pelvis did show evidence of ascending colitis with moderate wall thickening, correlate for infectious or inflammatory causes with of the liver and the bile duct was mildly dilated. The patient has been started on Zosyn. Infectious Disease was consulted for further management of antibiotic therapy. The patient also had a CT angiogram of the chest which was negative for any PE and small anterior pericardial effusion. No focal infiltrate. REVIEW OF SYSTEMS: Positive points have been mentioned in HPI. Rest of the systems are negative. PAST MEDICAL HISTORY: Hemorrhoids, anal fissure. PAST SURGICAL HISTORY: , cholecystectomy, hysterectomy and hemorrhoidectomy. SOCIAL HISTORY: Denies any smoking, no drinking. No drug use. FAMILY HISTORY: MEDICATION: Include the patient is currently on Tylenol, vitamin D3, Lovenox, Ativan, Narcan, Zofran, Zosyn 3.375 g q.8 hours. PHYSICAL EXAMINATION: Blood pressure 92/60 with a pulse of 83, temperature 98.6; She is 100% on room air. General description is a middle-aged female lying in bed in no distress. No tachypnea or accessory muscles of respiration use. HEENT: Examination shows no pallor or scleral icterus. Oral mucous membranes dry. NECK: Trachea central. No thyromegaly. LUNGS unlabored breathing. Clear to auscultation anteriorly. HEART: S1, S2. Regular rate and rhythm. ABDOMEN: Soft. No tenderness. No guarding. No rigidity. EXTREMITIES: No edema of the feet. SKIN examination: No rashes or mass palpable. NEUROLOGICAL: The patient is awake, alert and oriented times three. Mood and affect normal. LABS: Hemoglobin is 12.1, white count 3.5. BUN of 12, creatinine 0.63. Woods PCR negative. Blood cultures currently so far negative. CT abdomen and pelvis report as mentioned above. DIAGNOSTIC IMPRESSION AND PLAN: The patient admitted to the hospital with lower abdominal pain in this patient who did have a CT of abdomen and pelvis suspicious for worsening colitis and will need to cover for the enteric gram-negative both aerobes and anaerobes. No mention of any perforation or any abscess. PLAN: 1. Zosyn 3.375 g q.8 hours to continue. 2. Gentle IV fluid. 3. Will follow on clinical condition and culture to further adjust medication if needed. Thank you for this consultation. Will follow this patient along with you. MMODL / IJN: [id number] /
[2020-06-25] MEDS: CHOLECALCIFEROL 25 MCG (1000 IU) TABLET PO SCH (09:46)
[2020-06-25] MEDS: ENOXAPARIN 40 MG/0.4 ML SYRINGE SQ SCH (09:46)
[2020-06-25] MEDS: LIDOCAINE 2% GEL 30 ML TUBE TOPICAL SCH ×2 (09:47→19:37)
[2020-06-25] MEDS: ONDANSETRON 4 MG/2 ML VIAL IVP PRN ×2 (10:01→23:21)
--- NOTE | 2020-06-25 13:01 | P.PN ---
Progress Note - Text Progress Note Date: 06/25/20 Patient feels better. She has some right and left lower abdominal pain. On exam vital signs are stable. Her abdomen soft. There is no rebound or guarding. Ascending colitis. Patient was medically managed is planned. We'll we'll remain on surgical standby. She will need colonoscopy at some point
[2020-06-25] MEDS: HYDROCORTISONE SUPPOSITORY 25 MG SUPP RECTAL SCH ×2 (13:05→19:37)
--- NOTE | 2020-06-25 15:47 | CONS ---
CONSULTATION DATE OF DICTATION: June 25, 2020. REQUESTING PHYSICIAN: Dr. Helder Conde REASON FOR CONSULTATION: Acute colitis. HISTORY OF PRESENT ILLNESS: The patient is a 45-year-old pleasant white female admitted to the hospital with rectal bleeding and rectal pain that started about 2 weeks ago. The patient states that she was diagnosed with anal fissures in the past. However, 2 weeks ago she started having some rectal discomfort and rectal pain and rectal bleeding almost daily with bowel movements. She was initially having 1 or 2 bowel movements daily. The pain continued to progressively get worse and 2 days ago she had a low-grade fever and some lower abdominal discomfort and went and saw her family physician Dr. Conde and subsequently was advised to go to the emergency room. She had T-max of 101.4 at home. She came to the ER and subsequently had a CT of the abdomen and pelvis done that showed moderate wall thickening in the ascending colon consistent with acute colitis. The possibility of inflammatory bowel disease could not be excluded. There was heterogeneous enhancement of the liver, slightly dilated bile duct measuring 9 mm in size, prior history of cholecystectomy and mild interloop ascites in the mid abdomen with some free fluid in the cul-de-sac noted. The patient was started on broad-spectrum antibiotics for possible acute infectious colitis. This morning, she states that she has no further episodes of abdominal pain. She had 2 loose bowel movements today, some rectal discomfort and rectal bleeding. She did have a colonoscopy about 3 or 4 years ago and according to her it was within normal limits. She has family history of ulcerative colitis diagnosed in her son at age 20. PAST MEDICAL HISTORY: Her past medical history is significant for an anal fissure, hemorrhoids. PAST SURGICAL HISTORY: Cholecystectomy, , hysterectomy, and hemorrhoidectomy. MEDICATIONS: At home none. ALLERGIES: FLUCONAZOLE. SOCIAL HISTORY: No smoking. No alcohol use. FAMILY HISTORY: Unremarkable. REVIEW OF SYSTEMS: CARDIOPULMONARY: No chest pain or shortness of breath. no dysuria or hematuria. MUSCULOSKELETAL unremarkable. SKIN unremarkable. ENDOCRINE unremarkable. PSYCHIATRIC unremarkable. NEUROLOGY: Unremarkable. ENT/VISION: Unremarkable. CONSTITUTIONAL: No recent weight loss. No fever, chills, night sweats. PHYSICAL EXAMINATION: She appears comfortable. VITAL SIGNS: Stable. Blood pressure is 96/57, pulse is 72, temperature 98. HEENT examination unremarkable. Conjunctivae pink. Sclerae anicteric. Oral cavity no lesions. NECK no JVD or lymph node enlargement. CHEST was clear to auscultation. HEART: Regular rate and rhythm. ABDOMEN: Soft, it was nontender, nondistended. Bowel sounds are positive. No organomegaly. EXTREMITIES: No pedal edema. SKIN no rashes. NEUROLOGIC: Alert and oriented x3. No focal deficits. LABS: WBC 10.8, hemoglobin 13. Platelets normal. Today hemoglobin is 12.2, WBC 3.5. Basic metabolic panel is within normal limits. Lipase is normal. Woods virus PCR negative. Influenza A and B are negative. IMPRESSION: This is a lady who presented to the hospital who has been having intermittent rectal bleeding for the last 2 weeks associated with rectal bleeding consistent with acute anal fissure. However, she developed some low-grade fever and lower abdominal pain and a CT scan done yesterday showed thickening of the ascending colon consistent with acute colitis most likely infectious in etiology. The patient was seen by Dr. Blakely, presently on broad-spectrum antibiotics. Overall, her symptoms are much better. RECOMMENDATIONS: 1. Start her on suppositories for the anal fissure. 2. Continue with broad-spectrum antibiotics with acute colitis. 3. Advance to full liquid diet. 4. Repeat labs in the morning. 5. Continue with symptomatic and supportive care. 6. If the symptoms continue to improve, she can be discharged home in 1-2 days. 7. No plans on colonoscopy at present time, but we will consider if she continues to have persistent symptoms. 8. We will follow with you closely. Thank you for this consultation. MMODL / IJN: [id number] /
[2020-06-25] MEDS: MICONAZOLE 2% VAGINAL CREAM 45 GM TUBE/KIT VAGINAL SCH (19:36)
--- NOTE | 2020-06-25 22:20 | P.PN ---
Progress Note - Text Progress Note Date: 06/25/20 Chief Complaint: Abdominal pain History of presenting complaint: This is a pleasant 45-year-old patient of Dr. Helder Conde. Patient has a long- standing history of hemorrhoids. In April she was diagnosed to have annual fissure. Did use a Eucerin cream. Did improve for some time. 2 weeks ago started bleeding again with bowel movements. Increasing pain. Normally patient has a one bowel movement a day. Also started having some chills. Also complaining of abdominal pain. Has been having low-grade fevers. Says been here. Not feeling well. Some nausea. Passing stool is a painful for her Admitted with ascending colitis possibly infectious, anal fissure, painful external hemorrhoid. Started on IV Zosyn. Topical/rectal lidocaine and steroid. Clear liquid diet. Today-some improvement in abdominal pain. No nausea vomiting. No fever no chills. Had been on clear liquids. Seen by GI. Advanced to full liquids. Review of systems: Was done for constitutional, cardiovascular, GI, pulmonary. relevant finding as above Active Medications Acetaminophen (Acetaminophen Tab 325 Mg Tab) 650 mg PO Q6HR PRN PRN Reason: Fever and/ or Pain Last Admin: 06/25/20 09:45 Dose: 650 mg Documented by: Calcium Carbonate/Glycine (Calcium Carbonate 500 Mg Chewable) 1,000 mg PO Q4HR PRN PRN Reason: Dyspepsia Cholecalciferol (Cholecalciferol 25 Mcg (1000 Iu) Tablet) 50 mcg PO DAILY [facility] Last Admin: 06/25/20 09:46 Dose: 50 mcg Documented by: Enoxaparin Sodium (Enoxaparin 40 Mg/0.4 Ml Syringe) 40 mg SQ DAILY [facility] Last Admin: 06/25/20 09:46 Dose: 40 mg Documented by: Hydrocortisone Acetate (Hydrocortisone Suppository 25 Mg Supp) 25 mg RECTAL BID [facility] Last Admin: 06/25/20 19:37 Dose: 25 mg Documented by: Piperacillin Sod/Tazobactam (Sod 3.375 gm/ Sodium Chloride) 100 mls @ 25 mls/hr IVPB Q8HR [facility] Last Admin: 06/25/20 16:58 Dose: 25 mls/hr Documented by: Dextrose/Sodium Chloride (Dextrose 5%-Ns Iv Soln) 1,000 mls @ 150 mls/hr IV .Q6H40M [facility] Last Admin: 06/25/20 16:58 Dose: 150 mls/hr Documented by: Lidocaine HCl (Lidocaine 2% Gel 30 Ml Tube) 1 applic TOPICAL BID [facility] Last Admin: 06/25/20 19:37 Dose: 1 applic Documented by: Lorazepam (Lorazepam 2 Mg/Ml Inj) 1 mg IV Q4HR PRN PRN Reason: Anxiety Last Admin: 06/24/20 11:06 Dose: 1 mg Documented by: Miconazole Nitrate (Miconazole 2% Vaginal Cream 45 Gm Tube/Kit) 1 applic VAGINAL HS [facility] Stop: 07/02/20 23:00 Last Admin: 06/25/20 19:36 Dose: Not Given Documented by: Naloxone HCl (Naloxone 0.4 Mg/Ml 1 Ml Vial) 0.2 mg IV Q2M PRN PRN Reason: Opioid Reversal Ondansetron HCl (Ondansetron 4 Mg/2 Ml Vial) 4 mg IVP Q8HR PRN PRN Reason: Nausea And Vomiting Last Admin: 06/25/20 10:01 Dose: 4 mg Documented by: Social history: Lives with family. Does not smoke or drink alcohol. Physical examination: VITAL SIGNS: 98.1, 68, 16, 107/69, 100% on room air GENERAL: BMI 24.8, laying in bed, comfortable. EYES: Pupils equal. Conjunctiva normal. HEENT: External appearance of nose and ears normal, oral cavity grossly normal. NECK: JVD not raised; masses not palpable. HEART: First and second heart sounds are normal; no edema. LUNGS: Respiratory rate normal; clear to auscultation. ABDOMEN: Soft, mild abdominal tenderness, no guarding rigidity, liver spleen not palpable, no masses palpable. (EXAMINATION of the perianal area: Done in the presence of nurse mobile application tester Pratibha patient has external hemorrhoids at 5:00 and 3 o'clock position. Tender. There appears to be a posterior fissure) PSYCH: [Alert and oriented x3; mood and affect normal. INVESTIGATIONS, reviewed in the clinical context: June 24: WBC 3.5 hemoglobin 12.2 pro-calcitonin 0.5 to White count 10.8 hemoglobin 13.2 platelets 263 potassium 4.1 creatinine 0.63 Coronavirus [PCR]-not detected Chest x-ray film personally reviewed by me-clear Chest CTA-no PE. Other nonspecific findings CT abdomen pelvis with contrast-heterogenous enhancement of the liver. Bile duct 9 mm status post cholecystectomy. 15 cm long segment of ascending colon that shows moderate edema dose wall thickening and mucosal-thickening Assessment: -Acute ascending colitis, possibly infectious. Clear liquids-advanced to full liquids. IV Zosyn -Painful external hemorrhoids -In full Anal fissure. Use topical lidocaine gel before BM. Anusol HC -DVT prophylaxis. Subcu Lovenox Plan: Continue IV Zosyn. IV fluids. Discussed with GI in the patient. Increase activity.
--- NOTE | 2020-06-25 23:16 | PN ---
PROGRESS NOTE DATE OF SERVICE: 06/25/2020 REASON FOR FOLLOWUP: Colitis. INTERVAL HISTORY: The patient is currently afebrile. The patient abdominal pain has improved. Denies any nausea, no vomiting, no diarrhea. No chest pain, shortness of breath or cough. Does complain of some headache. PHYSICAL EXAMINATION: Blood pressure is 99/65, pulse of 74. Temperature 98.1. She is 100% on room air. General description: The patient is a middle-aged female lying in bed in no distress. Respiratory system: Unlabored breathing, clear to auscultation anteriorly. Heart S1, S2. Regular rate and rhythm. ABDOMEN: Soft, no tenderness. LABS: Hemoglobin 10.1, white count 3.5. DIAGNOSTIC IMPRESSION AND PLAN: Patient admitted to hospital with abdominal pain and rectal pain in this patient who did have a history of rectal fissure with evidence of ascending colitis on the CT. Patient clinically responded to Zosyn to continue while monitoring clinical course closely. Continue supportive care. MMODL / IJN: [id number] /
[2020-06-26] MEDS: LORazepam 2 MG/ML INJ IV PRN (02:50)
[2020-06-26 05:21] LABS: Anisocytosis Slight; Basophils % (A) 0 %; Eosinophils # (A) 0.1 k/uL (0-0.7); Eosinophils % (A) 2 %; HGB 11.1 gm/dL (11.4-16.0); Lymphocytes # (A) 1.5 k/uL (1.0-4.8); Lymphocytes % (A) 37 %; MCH 28.8 pg (25.0-35.0); MCHC 32.8 g/dL (31.0-37.0); Mean Platelet Volume 7.1; Monocytes # (A) 0.3 k/uL (0-1.0); Monocytes % (A) 6 %; Neutrophils # (A) 2.1 k/uL (1.3-7.7); Neutrophils % (A) 53 %; Platelet Count 232 k/uL (150-450); RBC 3.86 m/uL (3.80-5.40); RDW 17.1 % (11.5-15.5); WBC 4.1 k/uL (3.8-10.6)
[2020-06-26 05:30] LABS: ALT 41 U/L (4-34); AST 33 U/L (14-36); African American GFR (CKD) >90 (>60 ml/min/1.73 sqM); Albumin 3.3 g/dL (3.5-5.0); Albumin/Globulin Ratio 1.2; Alkaline Phosphatase 44 U/L (38-126); Anion Gap 5 mmol/L; Blood Urea Nitrogen 5 mg/dL (7-17); Calcium 8.5 mg/dL (8.4-10.2); Carbon Dioxide 24 mmol/L (22-30); Chloride 108 mmol/L (98-107); Globulin 2.7 g/dL; Glucose 98 mg/dL (74-99); Non-African American GFR(CKD) >90 (>60 ml/min/1.73 sqM); Potassium 3.5 mmol/L (3.5-5.1); Sodium 137 mmol/L (137-145); Total Bilirubin 0.9 mg/dL (0.2-1.3)
[2020-06-26] MEDS: DEXTROSE 5%-0.9% NACL 1,000 ML IV SCH ×3 (09:54→19:56)
--- NOTE | 2020-06-26 10:37 | P.PN ---
Subjective From a course: This is a pleasant 45-year-old patient of Dr. Helder Conde. Patient has a long- standing history of hemorrhoids. In April she was diagnosed to have annual fissure. Did use a Eucerin cream. Did improve for some time. 2 weeks ago started bleeding again with bowel movements. Increasing pain. Normally patient has a one bowel movement a day. Also started having some chills. Also complaining of abdominal pain. Has been having low-grade fevers. Says been here. Not feeling well. Some nausea. Passing stool is a painful for her Admitted with ascending colitis possibly infectious, anal fissure, painful external hemorrhoid. Started on IV Zosyn. Topical/rectal lidocaine and steroid. Clear liquid diet. Today-some improvement in abdominal pain. No nausea vomiting. No fever no chills. Had been on clear liquids. Seen by GI. Advanced to full liquids. Subjective:this is the first day I am taking care of the patient 06/26/2020 This is a pleasant 45 years old female with past medical history of hysterectomy and other medical problems, she presents initially because of rectal pain secondary to anal fissure and 2 days ago also she started having some periUmbilical abdominal pain and on CAT scan she has ascending colitis and she was started on Zosyn. Today she does not have abdominal pain but she has some loculated gas in the abdomen and she wants something to help her [place] going to start semithicone She tolerated her breakfast this morning and she is on full liquid diet currently. She has little yellow bowel movement today and a few little yesterday. Also she is complaining of from vaginal discharge, whitish yellowish in color was management that started when she came in to the hospital. Also she has 1.7 cm left ovarian cyst. 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 Rodney Elias whom she saw last month for gas and bloating abdomen Objective - Vital Signs Vital signs: Vital Signs Temp 98.1 F 06/26/20 07:00 Pulse 75 06/26/20 08:00 Resp 16 06/26/20 08:00 BP 137/65 06/26/20 07:00 Pulse Ox 96 06/26/20 07:00 Intake & Output 06/25/20 06/26/20 06/26/20 18:59 06:59 18:59 Intake Total 1800 118 Balance 1800 118 Intake: Intake, IV Titration 1800 Amount Dextrose 5%-0.9% NaCl 1, 1800 000 ml @ 150 mls/hr IV . Q6H40M [facility] Rx#:[id number] Oral 118 Other: Voiding Method Toilet Toilet Toilet # Voids 1 2 2 - Exam GENERAL: The patient is alert and oriented x3, not in any acute distress. Well developed, well nourished. HEENT: Pupils are round and equally reacting to light. EOMI. No scleral icterus. No conjunctival pallor. Normocephalic, atraumatic. No pharyngeal erythema. No thyromegaly. CARDIOVASCULAR: S1 and S2 present. No murmurs, rubs, or gallops. PULMONARY: Chest is clear to auscultation, no wheezing or crackles. ABDOMEN: Soft, nontender, nondistended, normoactive bowel sounds. No palpable or ganomegaly. MUSCULOSKELETAL: No joint swelling or deformity. EXTREMITIES: No cyanosis, clubbing, or pedal edema. NEUROLOGICAL: Gross neurological examination did not reveal any focal deficits. SKIN: No rashes. no petechiae. - Labs CBC & Chem 7: 06/26/20 05:07 06/26/20 05:07 Labs: Abnormal Lab Results - Last 24 Hours (Table) 06/26/20 06/26/20 Range/Units 05:07 05:07 Hgb 11.1 L (11.4-16.0) gm/dL RDW 17.1 H (11.5-15.5) % Chloride 108 H (98-107) mmol/L BUN 5 L (7-17) mg/dL ALT 41 H (4-34) U/L Total Protein 6.0 L (6.3-8.2) g/dL Albumin 3.3 L (3.5-5.0) g/dL Microbiology - Last 24 Hours (Table) 06/23/20 18:18 Blood Culture - Preliminary Blood No Growth after 48 hours 06/23/20 18:18 Blood Culture - Preliminary Blood No Growth after 48 hours Assessment and Plan Assessment: -Acute ascending colitis, possibly infectious. Clear liquids-advanced to full liquids. IV Zosyn -Painful external hemorrhoids -In full Anal fissure. Use topical lidocaine gel before BM. Anusol HC History of hysterectomy for bleeding Plan: This is a pleasant 45 years old female who presents with anal fissure and ascending colitis. Also she has some vaginal discharge and left ovarian cyst. Continue with hydrocortisone cream/suppository, also she is on IV fluids and Zosyn. GI and surgery team on the case as well as infectious disease team Team been consulted for vaginal decided and left ovarian cyst Labs and medication were reviewed.. Continue same treatment. Continue with symptomatic treatment. Resume home medication. Monitor lytes and vitals. DVT and GI prophylaxis. Further recommendationsas per clinical course of the patient DVT prophylaxis: Subcutaneous Lovenox GI Prophylaxis: Ppi
[2020-06-26] MEDS: ENOXAPARIN 40 MG/0.4 ML SYRINGE SQ SCH (11:00)
[2020-06-26] MEDS: PIPERACILLIN-TAZOBACTAM 3.375 GM in SODIUM CHLORIDE 0.9% 100 ML IVPB SCH ×2 (11:00→18:07)
[2020-06-26] MEDS: LIDOCAINE 2% GEL 30 ML TUBE TOPICAL SCH ×2 (11:01→19:57)
[2020-06-26] MEDS: CHOLECALCIFEROL 25 MCG (1000 IU) TABLET PO SCH (11:01)
[2020-06-26] MEDS: HYDROCORTISONE SUPPOSITORY 25 MG SUPP RECTAL SCH ×2 (11:01→19:56)
[2020-06-26] MEDS: PANTOPRAZOLE 40 MG/10 ML VIAL IVP SCH (11:02)
--- NOTE | 2020-06-26 11:16 | P.PN ---
Subjective Progress Note Date: 06/26/20 CHIEF COMPLAINT: Abdominal pain HISTORY OF PRESENT ILLNESS: Patient is being followed in regards to her a scending colitis. She reports that her pain is more of a discomfort today. She was having a yellowish liquidy bowel movements yesterday. She reports that her rectal pain has decreased. She denies any blood in the stools. Denies any vomiting. She has been having some nausea. She is on IV antibiotics. Blood cultures are negative afebrile. WBC 4.1 She is on a full liquid diet. She is complaining of a burning sensation in her vaginal area. She feels she may have a yeast infection. PHYSICAL EXAM: VITAL SIGNS: Reviewed. GENERAL: Well-developed in no acute distress. HEENT: No sclera icterus. Extraocular movements grossly intact. Moist buccal mucosa. Head is atraumatic, normocephalic. ABDOMEN: Soft. Nondistended. Nontender. NEUROLOGIC: Alert and oriented. Cranial nerves II through XII grossly intact. ASSESSMENT: 1. Ascending colitis 2. Possible rectal fissure PLAN: -Continue medical management of colitis -Continue antibiotics -Surgical service on standby -Patient will need colonoscopy at some point Physician Installer note has been reviewed by physician. Signing provider agrees with the documented findings, assessment, and plan of care. Objective - Vital Signs Vital signs: Vital Signs Temp 98.1 F 06/26/20 07:00 Pulse 75 06/26/20 08:00 Resp 16 06/26/20 08:00 BP 137/65 06/26/20 07:00 Pulse Ox 96 06/26/20 07:00 Intake & Output 06/25/20 06/26/20 06/26/20 18:59 06:59 18:59 Intake Total 1800 118 Balance 1800 118 Intake: Intake, IV Titration 1800 Amount Dextrose 5%-0.9% NaCl 1, 1800 000 ml @ 150 mls/hr IV . Q6H40M [facility] Rx#:[id number] Oral 118 Other: Voiding Method Toilet Toilet Toilet # Voids 1 2 2 - Labs CBC & Chem 7: 06/26/20 05:07 06/26/20 05:07 Labs: Abnormal Lab Results - Last 24 Hours (Table) 06/26/20 06/26/20 Range/Units 05:07 05:07 Hgb 11.1 L (11.4-16.0) gm/dL RDW 17.1 H (11.5-15.5) % Chloride 108 H (98-107) mmol/L BUN 5 L (7-17) mg/dL ALT 41 H (4-34) U/L Total Protein 6.0 L (6.3-8.2) g/dL Albumin 3.3 L (3.5-5.0) g/dL Microbiology - Last 24 Hours (Table) 06/23/20 18:18 Blood Culture - Preliminary Blood No Growth after 48 hours 06/23/20 18:18 Blood Culture - Preliminary Blood No Growth after 48 hours
--- NOTE | 2020-06-26 13:21 | P.OBCN ---
History of Present Illness Consult date: 06/26/20 Chief complaint: Possible vaginal yeast infection History of present illness: The patient is a 45-year-old 5 para 3023 who was admitted for issues as detailed in the chart and ultimately is Tim discovered to likely have a colitis for which she has been on broad-spectrum antibiotics for a number of days. She began to have some vaginal discomfort in the last day or 2 and reports that, whenever she is on antibiotic, she will get symptoms of yeast. She has had a long-standing history of vulvovaginal problems including swelling, discomfort, skin splitting on the external portions with an inability to tolerate any of the topical yeast creams which have caused her significantly increased discomfort. She has recently been using Estrace vaginal cream which has been effective in alleviating some of the vaginal symptoms but is otherwise only used Eucerin cream externally which was alleviated some of the symptoms, though not entirely. 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 She reports that the only effective treatment which does not cause her vaginal discomfort when she has yeast symptoms has been boric acid suppositories. She is in possession of boric acid suppositories at home. She also was found incidentally to have a small ovarian cyst on CT of the abdomen and pelvis which is almost certainly consistent with ovulation. Obstetrical history: 5 para 3023 with her first delivery being a primary section for double footling breech in emergent fashion. She then had 2 subsequent successful vaginal births after section. Method of contraception is hysterectomy. She did additionally have 2 miscarriages that required D&C. Gynecologic history: Unremarkable. She had either laparoscopic or da Samy robotically assisted laparoscopic hysterectomy in 2017 following a failed ablation with symptoms being primarily significant irregular and heavy bleeding. The ovaries have been left in situ. She has no ongoing symptoms of potential perimenopause. Review of Systems Review of systems is confined to history of present illness. Past Medical History Additional Past Medical History / Comment(s): hemrrhoids, anal fissure History of Any Multi-Drug Resistant Organisms: None Reported Past Surgical History: Section, Cholecystectomy, Hysterectomy Additional Past Surgical History / Comment(s): hemmrhoidrectomy Past Anesthesia/Blood Transfusion Reactions: Postoperative Nausea & Vomiting (PONV) Past Psychological History: No Psychological Hx Reported Smoking Status: Former smoker Past Alcohol Use History: Rare Past Drug Use History: None Reported - Past Family History Sister(s) Additional Family Medical History / Comment(s): DEPRESSION Mother Family Medical History: Dementia, Diabetes Mellitus Son(s) Additional Family Medical History / Comment(s): ULCERATIVE COLITIS Medications and Allergies Home Medications Medication Instructions Recorded Confirmed Type Ascorbic Acid [Vitamin C] 500 mg PO DAILY 06/23/20 06/23/20 History Biotin 10,000 mcg PO DAILY 06/23/20 06/23/20 History Cholecalciferol [Vitamin D3 (25 50 mcg PO DAILY 06/23/20 06/23/20 History Mcg = 1000 Iu)] Multivitamins, Thera [Multivitamin 1 tab PO DAILY 06/23/20 06/23/20 History (formulary)] Cefuroxime Axetil [Ceftin] 500 mg PO BID 10 Days #20 tab 06/26/20 Rx metroNIDAZOLE [Flagyl] 500 mg PO TID #30 tab 06/26/20 Rx Allergies Allergy/AdvReac Type Severity Reaction Status Date / Time fluconazole [From Diflucan] Allergy Unknown Verified 06/23/20 19:25 Exam Vital Signs Temp Pulse Resp BP BP Pulse Ox 06/26/20 08:00 75 16 06/26/20 07:00 98.1 F 75 16 137/65 96 06/26/20 02:00 98.2 F 59 L 18 114/60 97 06/26/20 01:10 17 06/25/20 20:00 98.1 F 64 17 99/65 100 06/25/20 15:00 98.1 F 68 16 107/69 100 06/25/20 13:41 16 Intake and Output 06/25/20 06/26/20 06/26/20 22:59 06:59 14:59 Intake Total 1200 600 118 Balance 1200 600 118 Intake: Intake, IV Titration 1200 600 Amount Dextrose 5%-0.9% NaCl 1, 1200 600 000 ml @ 150 mls/hr IV . Q6H40M [facility] Rx#:[id number] Oral 118 Other: Voiding Method Toilet Toilet Toilet # Voids 2 2 2 No physical examination is indicated at this time as there is no facilities to a [facility] for completing a wet preparation the patient is devoid of pelvic organs aside from ovaries which are not of concern based on history as well as the computed tomography scan. The small ovarian cyst noted on computed tomography scan is almost certainly ovulatory in nature and benign. Results Result Diagrams: 06/26/20 05:07 06/26/20 05:07 Abnormal Lab Results - Last 24 Hours (Table) 06/26/20 06/26/20 Range/Units 05:07 05:07 Hgb 11.1 L (11.4-16.0) gm/dL RDW 17.1 H (11.5-15.5) % Chloride 108 H (98-107) mmol/L BUN 5 L (7-17) mg/dL ALT 41 H (4-34) U/L Total Protein 6.0 L (6.3-8.2) g/dL Albumin 3.3 L (3.5-5.0) g/dL Microbiology - Last 24 Hours (Table) 06/23/20 18:18 Blood Culture - Preliminary Blood No Growth after 48 hours 06/23/20 18:18 Blood Culture - Preliminary Blood No Growth after 48 hours Assessment and Plan (1) Vaginal yeast infection Current Visit: Yes Status: Acute Code(s): B37.3 - CANDIDIASIS OF VULVA AND VAGINA SNOMED Code(s): 51404400 (2) Vulvar dystrophy Current Visit: Yes Status: Acute Code(s): N90.4 - LEUKOPLAKIA OF VULVA SNOMED Code(s): 62488933 Plan: I had a long discussion with the patient regarding potential options going forward. I will attempt to order boric acid suppositories for her time in the hospital but suspected is not on formulary. She is likely to be discharged home today where she can continue her boric acid which she has in possession. I also suggested that she may be a candidate for a topical cream to cover both vulvar dystrophy and the potential for yeast involvement with either nystatin with triamcinolone cream for Lotrisone cream. She would likely require an outpatient evaluation prior to this trial. I have reassured her regarding the ovarian cyst finding which is of no concern and explained the natural history. I lastly discussed with her that, given the long-standing and difficult nature of her vulvovaginal symptoms, she may be a good candidate for referral to the specialty clinic for vulvovaginal disorders at the [facility]. She is welcome to follow up with me in the outpatient but otherwise the plan stands as outlined above.
--- NOTE | 2020-06-26 14:45 | P.PN ---
Subjective Progress Note Date: 06/26/20 HISTORY OF PRESENT ILLNESS This is a 45-year-old female patient treated for colitis. Patient states she d oes not have any abdominal pain. She denies any headache. She states ice helped her headache go away. She denies any chest pain, cough or shortness of breath. She denies having any blood in her stools. She is currently on a full liquid diet. Patient is covered with Zosyn. PHYSICAL EXAMINATION Gen: This is a 45-year-old female. Patient is resting bed appears to be comfortable. HEENT: Head is atraumatic, normocephalic. Pupils equal, round. Sclerae is anicteric. NECK: Supple. No JVD. LUNGS: Clear to auscultation. No wheezes or rhonchi. HEART: Regular rate and rhythm. No murmur. ABDOMEN: Soft. Bowel sounds are present. No masses. No tenderness. EXTREMITIES: No pedal edema. No calf tenderness. NEUROLOGICAL: Patient is awake, alert and oriented x3. ASSESSMENT Abdominal pain or rectal pain with history of rectal fissure Ascending colitis on CAT scan PLAN Continue Zosyn while hospitalized Plan for Ceftin and Flagyl for 10 day course as an outpatient, prescription sent to her pharmacy. The above dictated assessment and findings were discussed with Dr. Blakely. The impression and plan of care have been directed as dictated. Maty Manrique nurse practitioner acting as scribe for Dr. Blakely. Objective - Vital Signs Vital signs: Vital Signs Temp 98.1 F 06/26/20 07:00 Pulse 75 06/26/20 08:00 Resp 16 06/26/20 08:00 BP 137/65 06/26/20 07:00 Pulse Ox 96 06/26/20 07:00 Intake & Output 06/25/20 06/26/20 06/26/20 18:59 06:59 18:59 Intake Total 1800 118 Balance 1800 118 Intake: Intake, IV Titration 1800 Amount Dextrose 5%-0.9% NaCl 1, 1800 000 ml @ 150 mls/hr IV . Q6H40M [facility] Rx#:[id number] Oral 118 Other: Voiding Method Toilet Toilet Toilet # Voids 1 2 2 - Labs CBC & Chem 7: 06/26/20 05:07 06/26/20 05:07 Labs: Abnormal Lab Results - Last 24 Hours (Table) 06/26/20 06/26/20 Range/Units 05:07 05:07 Hgb 11.1 L (11.4-16.0) gm/dL RDW 17.1 H (11.5-15.5) % Chloride 108 H (98-107) mmol/L BUN 5 L (7-17) mg/dL ALT 41 H (4-34) U/L Total Protein 6.0 L (6.3-8.2) g/dL Albumin 3.3 L (3.5-5.0) g/dL Microbiology - Last 24 Hours (Table) 06/23/20 18:18 Blood Culture - Preliminary Blood No Growth after 48 hours 06/23/20 18:18 Blood Culture - Preliminary Blood No Growth after 48 hours
--- NOTE | 2020-06-26 16:10 | P.PN ---
Subjective Progress Note Date: 06/26/20 Principal diagnosis: Acute colitis This is a pleasant 45-year-old white female who was admitted to the hospital with rectal bleeding and rectal pain that started about 2 weeks ago. The patient has had a history of anal fissures in the past. She has been having rectal bleeding and rectal pain almost daily with bowel movements. She started having low-grade fever and some lower abdominal discomfort and pain and came to emergency department for further treatment. CT of the abdomen showed moderate wall thickening in the ascending colon consistent with acute colitis. Today the patient states she's had no further rectal bleeding, no rectal pain. She denies any abdominal pain, nausea or vomiting but states that she's having some gas and bloating in her stomach. Objective - Vital Signs Vital signs: Vital Signs Temp 98.1 F 06/26/20 07:00 Pulse 75 06/26/20 08:00 Resp 16 06/26/20 08:00 BP 137/65 06/26/20 07:00 Pulse Ox 96 06/26/20 07:00 Intake & Output 06/25/20 06/26/20 06/26/20 18:59 06:59 18:59 Intake Total 1800 118 Balance 1800 118 Intake: Intake, IV Titration 1800 Amount Dextrose 5%-0.9% NaCl 1, 1800 000 ml @ 150 mls/hr IV . Q6H40M [facility] Rx#:[id number] Oral 118 Other: Voiding Method Toilet Toilet Toilet # Voids 1 2 2 - Exam General appearance: The patient is alert, oriented, appears in no acute distress. HET: Head is normocephalic and atraumatic. Conjunctiva pink. Sclera anicteric. Neck: Supple without lymphadenopathy. Abdomen: Soft, nontender, nondistended with bowel sounds. No guarding or rigidity. Extremities: Normal skin color and turgor. No pedal edema Skin: No rashes, no jaundice Neurological: No focal deficits. Alert and oriented 3. - Labs CBC & Chem 7: 06/26/20 05:07 06/26/20 05:07 Labs: Abnormal Lab Results - Last 24 Hours (Table) 06/26/20 06/26/20 Range/Units 05:07 05:07 Hgb 11.1 L (11.4-16.0) gm/dL RDW 17.1 H (11.5-15.5) % Chloride 108 H (98-107) mmol/L BUN 5 L (7-17) mg/dL ALT 41 H (4-34) U/L Total Protein 6.0 L (6.3-8.2) g/dL Albumin 3.3 L (3.5-5.0) g/dL Microbiology - Last 24 Hours (Table) 06/23/20 18:18 Blood Culture - Preliminary Blood No Growth after 48 hours 06/23/20 18:18 Blood Culture - Preliminary Blood No Growth after 48 hours Assessment and Plan (1) Rectal bleeding Narrative/Plan: The lady who presented to the hospital was been having intermittent rectal blee ding for the last 2 weeks associated with rectal pain and consistent with acute anal fissure. However she developed some low-grade fever and lower abdominal pain in the computed tomography scan done on admission showed thickening of the ascending colon consistent with acute colitis most likely infectious in etiology. Patient was seen by Dr. Blakely presently on broad-spectrum antibiotics. Overall symptoms are improving. Current Visit: Yes Status: Acute Code(s): K62.5 - HEMORRHAGE OF ANUS AND RECTUM SNOMED Code(s): 63304019 Plan: 1. Continue suppositories renal fissure 2. Continue broad-spectrum antibiotics 3. Advance to regular diet 4. Repeat labs in the morning 5. No plans on colonoscopy at present time, can consider as an outpatient if symptoms persist 6. Patient may be discharged home from a gastroenterology standpoint medically stable Dr. Apryl Reyes I agree with the dictator's note, documented as a scribe by Candy Munoz.
[2020-06-26] MEDS: MICONAZOLE 2% VAGINAL CREAM 45 GM TUBE/KIT VAGINAL SCH (19:49)
[2020-06-26] MEDS: CALCIUM CARBONATE 500 MG CHEWABLE PO PRN (19:56)
[2020-06-26] MEDS: SIMETHICONE 80 MG CHEWABLE PO PRN (22:59)
[2020-06-27] MEDS: DEXTROSE 5%-0.9% NACL 1,000 ML IV SCH (00:31)
[2020-06-27] MEDS: PIPERACILLIN-TAZOBACTAM 3.375 GM in SODIUM CHLORIDE 0.9% 100 ML IVPB SCH ×2 (00:31→07:32)
[2020-06-27] MEDS: CALCIUM CARBONATE 500 MG CHEWABLE PO PRN (00:36)
[2020-06-27] MEDS: PANTOPRAZOLE 40 MG/10 ML VIAL IVP SCH (07:33)
[2020-06-27] MEDS: CHOLECALCIFEROL 25 MCG (1000 IU) TABLET PO SCH (07:33)
[2020-06-27] MEDS: ENOXAPARIN 40 MG/0.4 ML SYRINGE SQ SCH (07:33)
[2020-06-27] MEDS: LIDOCAINE 2% GEL 30 ML TUBE TOPICAL SCH (07:35)
[2020-06-27] MEDS: HYDROCORTISONE SUPPOSITORY 25 MG SUPP RECTAL SCH (07:36)
[2020-06-27] MEDS: SIMETHICONE 80 MG CHEWABLE PO PRN (08:52)
[2020-06-27 09:53] VITALS: BP 109/72; PULSE 76; RESP 16; TEMP 98.2
--- NOTE | 2020-06-27 11:55 | P.PN ---
Subjective Progress Note Date: 06/27/20 CHIEF COMPLAINT: Abdominal pain HISTORY OF PRESENT ILLNESS: Patient is being followed in regards to her a scending colitis. Patient denies any abdominal pain. Denies any nausea or vomiting. She is tolerating diet. She is having bowel movements. Her soft. No bleeding. Patient is afebrile. PHYSICAL EXAM: VITAL SIGNS: Reviewed. GENERAL: Well-developed in no acute distress. HEENT: No sclera icterus. Extraocular movements grossly intact. Moist buccal mucosa. Head is atraumatic, normocephalic. ABDOMEN: Soft. Nondistended. Nontender. NEUROLOGIC: Alert and oriented. Cranial nerves II through XII grossly intact. ASSESSMENT: 1. Ascending colitis 2. Possible rectal fissure PLAN: -Patient can be discharge from surgical standpoint -Patient will need colonoscopy at some point Physician Acoustical Carpenter note has been reviewed by physician. Signing provider agrees with the documented findings, assessment, and plan of care. Objective - Vital Signs Vital signs: Vital Signs Temp 98.2 F 06/27/20 07:30 Pulse 76 06/27/20 08:00 Resp 16 06/27/20 08:00 BP 109/72 06/27/20 07:30 Pulse Ox 99 06/27/20 07:30 Intake & Output 06/26/20 06/27/20 06/27/20 18:59 06:59 18:59 Intake Total 118 1145 Balance 118 1145 Intake: Intake, IV Titration 600 Amount Dextrose 5%-0.9% NaCl 1, 600 000 ml @ 75 mls/hr IV . [id number] [facility] Rx#:[id number] Oral 118 545 Other: Voiding Method Toilet Toilet Toilet # Voids 1 2 - Labs CBC & Chem 7: 06/26/20 05:07 06/26/20 05:07 Labs: Abnormal Lab Results - Last 24 Hours (Table) 06/24/20 Range/Units 09:41 Procalcitonin 0.52 H (0.02-0.09) ng/mL Microbiology - Last 24 Hours (Table) 06/23/20 18:18 Blood Culture - Preliminary Blood No Growth after 72 hours 06/23/20 18:18 Blood Culture - Preliminary Blood No Growth after 72 hours
--- NOTE | 2020-06-27 23:47 | P.DS ---
Providers Date of admission: 06/26/20 08:39 Attending physician: Ra Webb Consults: 06/23/20 19:31 Consult Physician Routine Consulting Provider: Ruben Tejada Consult Reason/Comments: rectal fissure Do you want consulting provider notified?: Yes 06/24/20 13:05 Consult Physician Routine Consulting Provider: Mikal Blakely Consult Reason/Comments: bacteremia, abdominal pain, and painful internal hemrrhoid Do you want consulting provider notified?: Yes 06/24/20 23:12 Consult Physician Routine Consulting Provider: Lidia Reyes Consult Reason/Comments: Ascending colitis Do you want consulting provider notified?: Yes 06/25/20 22:08 Consult Physician Routine Consulting Provider: David Card Consult Reason/Comments: Severe Pevic, Vx discharge. Ovarian cyst Do you want consulting provider notified?: Yes, Notify in am Primary care physician: [facility] Hospital Course: Diagnoses: -Acute ascending colitis, possibly infectious, completely asymptomatic and resolved on discharge. patient is discharge on oral antibiotics as per ID team -Anal fissure. Improved and patient was painless upon discharge -valvular dystrophy, follow-up with AUTOMATIC HEMMER upon discharge -History of hysterectomy for bleeding Hospital course: This is a pleasant 45 years old female with past medical history of hysterectomy and other medical problems, she presents initially because of rectal pain secon jerrell to anal fissure and 2 days ago also she started having some periUmbilical abdominal pain and on CAT scan she has ascending colitis and she was started on Zosyn. Patient also has been evaluated by GI, surgery and infectious disease team, patient showed interval improvement and her abdominal pain and inguinal pain or completely resolved, patient has painless bowel movement, no blood per rectum, no nausea vomiting and she tolerates diet, actually patient wanted to be discharged from yesterday. And she was eager to go home today as well Restoration Technician evaluated her for vaginal discharge and diagnosed her with valvular dystrophy and recommended topical treatment and follow-up as an outpatient Patient was cleared for discharge by all consultants including infectious disease, surgery, GI and AUTOMATIC HEMMER Problems and management plan were discussed with the patient and he verbalized understanding and acceptance Patient was found stable and can be discharged home however he needs follow-up as an outpatient. Patient was instructed to follow up with PCP within one week and patient agrees Patient agrees with the appointments made for her with Dr. Reyes on 07/[address] Medina is on 07/[address] Card on 07/13 as she was instructed with these physician in 1-2 weeks and she agrees to follow up on their appointments Physical exam Gen: patient is a AAOx3, no distress CVS: S1-S2, RRR, no murmur Lungs: B/L CTA, no wheezing Abdomen: soft, no distention, no tenderness, positive bowel sounds Extremity: no leg edema or induration Time spent more than 35 minutes Patient Condition at Discharge: Fair Plan - Discharge Summary Discharge Rx Participant: No New Discharge Prescriptions: New Cefuroxime Axetil [Ceftin] 500 mg PO BID 10 Days #20 tab metroNIDAZOLE [Flagyl] 500 mg PO TID #30 tab Hydrocortisone Suppository [Anusol-Hc] 25 mg RECTAL BID 5 Days #1 supp Miconazole 2% Vaginal Cream [Monistat 7] 1 applic VAGINAL HS 5 Days #1 applic Acetaminophen Tab [Tylenol] 650 mg PO Q6HR PRN tab PRN Reason: Fever And/ Or Pain Continue Multivitamins, Thera [Multivitamin (formulary)] 1 tab PO DAILY Cholecalciferol [Vitamin D3 (25 Mcg = 1000 Iu)] 50 mcg PO DAILY Biotin 10,000 mcg PO DAILY Ascorbic Acid [Vitamin C] 500 mg PO DAILY Discharge Medication List Ascorbic Acid [Vitamin C] 500 mg PO DAILY 06/23/20 [History] Biotin 10,000 mcg PO DAILY 06/23/20 [History] Cholecalciferol [Vitamin D3 (25 Mcg = 1000 Iu)] 50 mcg PO DAILY 06/23/20 [History] Multivitamins, Thera [Multivitamin (formulary)] 1 tab PO DAILY 06/23/20 [History] Cefuroxime Axetil [Ceftin] 500 mg PO BID 10 Days #20 tab 06/26/20 [Rx] metroNIDAZOLE [Flagyl] 500 mg PO TID #30 tab 06/26/20 [Rx] Acetaminophen Tab [Tylenol] 650 mg PO Q6HR PRN tab 06/27/20 [Rx] Hydrocortisone Suppository [Anusol-Hc] 25 mg RECTAL BID 5 Days #1 supp 06/27/20 [Rx] Miconazole 2% Vaginal Cream [Monistat 7] 1 applic VAGINAL HS 5 Days #1 applic 06/27/20 [Rx] Follow up Appointment(s)/Referral(s): Helder Conde MD [Primary Care Provider] - 06/29/20 10:00 am (91) David Card MD [STAFF PHYSICIAN] - 07/13/20 11:15 am (AUTOMATIC HEMMER) Lidia Reyes MD [STAFF PHYSICIAN] - 07/31/20 2:45 pm (GI) Ruben Tejada MD [STAFF PHYSICIAN] - 07/11/20 1:00 pm (surgery) Activity/Diet/Wound Care/Special Instructions: regular diet activity is restricted till you see your doctor Discharge Disposition: HOME SELF-CARE
== END 2020-06-27 12:30 | disposition home or self-care (01) | DRG 392 ==
LOC: EC 17:30 → 6NMEDSUR 19:33 → OBSVTOIN 06-26 08:39
PROVIDERS: ADMIT Hospitalist; ATTEND Hospitalist
DX: A09 Infectious gastroenteritis and colitis, unspecified (principal); K60.2 Anal fissure, unspecified; N83.202 Unspecified ovarian cyst, left side; B37.3 Candidiasis of vulva and vagina; N90.4 Leukoplakia of vulva; Z20.822 Contact with and (suspected) exposure to COVID-19; K64.4 Residual hemorrhoidal skin tags; R51.9 Headache, unspecified; Z90.710 Acquired absence of both cervix and uterus; Z90.49 Acquired absence of other specified parts of digestive tract; Z87.891 Personal history of nicotine dependence; Z83.3 Family history of diabetes mellitus; Z81.8 Family history of other mental and behavioral disorders; Z88.8 Allergy status to other drugs, medicaments and biological substances
CPT/HCPCS: 36415; 71045; 71275; 74177; 80053; 81001; 82150; 83605; 83690; 84145; 84484; 85025; 87040; 87502; 87635; 96361; 96365; 99284

== ENCOUNTER 2020-07-13 16:34 | Observation (INO) | payer BC ==
[2020-07-13 17:58] LABS: Anisocytosis Slight; Basophils % (A) 0 %; Eosinophils # (A) 0.2 k/uL (0-0.7); Eosinophils % (A) 3 %; HCT 39.5 % (34.0-46.0); HGB 13.3 gm/dL (11.4-16.0); Lymphocytes # (A) 1.7 k/uL (1.0-4.8); Lymphocytes % (A) 33 %; MCH 29.5 pg (25.0-35.0); MCHC 33.7 g/dL (31.0-37.0); MCV 87.4 fL (80.0-100.0); Mean Platelet Volume 8.3; Monocytes # (A) 0.3 k/uL (0-1.0); Monocytes % (A) 5 %; Neutrophils # (A) 2.9 k/uL (1.3-7.7); Neutrophils % (A) 56 %; Platelet Count 286 k/uL (150-450); RBC 4.51 m/uL (3.80-5.40); RDW 17.1 % (11.5-15.5); WBC 5.2 k/uL (3.8-10.6)
[2020-07-13 18:08] LABS: ALT 41 U/L (4-34); AST 49 U/L (14-36); African American GFR (CKD) >90 (>60 ml/min/1.73 sqM); Albumin 4.8 g/dL (3.5-5.0); Alkaline Phosphatase 33 U/L (38-126); Anion Gap 9 mmol/L; Blood Urea Nitrogen 8 mg/dL (7-17); Calcium 9.5 mg/dL (8.4-10.2); Carbon Dioxide 26 mmol/L (22-30); Chloride 103 mmol/L (98-107); Glucose 91 mg/dL (74-99); Non-African American GFR(CKD) >90 (>60 ml/min/1.73 sqM); Sodium 138 mmol/L (137-145); Total Bilirubin 1.8 mg/dL (0.2-1.3); Total Protein 8.1 g/dL (6.3-8.2)
[2020-07-13 18:09] LABS: Potassium 5.3 mmol/L (3.5-5.1)
[2020-07-13] MEDS ORDERED: PANTOPRAZOLE 40 MG/10 ML VIAL IVP STA (18:29)
[2020-07-13] MEDS ORDERED: MORPHINE SULFATE 4 MG/ML SYRINGE IV PRN (18:30)
[2020-07-13] MEDS ORDERED: NALOXONE 0.4 MG/ML 1 ML VIAL IV PRN (18:30)
[2020-07-13] MEDS ORDERED: SODIUM CHLORIDE 0.9% 1,000 ML IV SCH (18:30)
--- NOTE | 2020-07-13 18:54 | ED ---
GI Bleed HPI - General Chief complaint: GI Bleed Stated complaint: Sent by PCP Time Seen by Provider: 07/13/20 17:05 Source: patient Mode of arrival: ambulatory Limitations: no limitations - History of Present Illness Initial comments: 45 year old feel presenting today for chief complaint of rectal bleeding. Patient states the past 4 hours she has had rectal bleeding a total of 20 episodes. She states her son has history of ulcerative colitis that she is working with Dr. Reyes due to chronic rectal bleeding and abdominal pain to rule out irritable bowel disease. Patient states she had a scheduled endoscopy and colonoscopy for tomorrow. Patient states she called the office is told to come in for admission given the amount of bleeding described. Patient denies any nausea she denies any severe abdominal pain. Patient denies any rectal pain. Patient denies any fevers. She denies any dark stools. Patient states that she has not had anything to eat for 24 hours and is supposed to start bowel prep this evening. Patient has no additional complaints/concerns at this time. Appears well nontoxic in no distress. - Related Data Home Medications Medication Instructions Recorded Confirmed No Known Home Medications 07/13/20 07/13/20 Allergies Allergy/AdvReac Type Severity Reaction Status Date / Time fluconazole [From Diflucan] Allergy HIVES Verified 07/13/20 17:55 Review of Systems ROS Statement: Those systems with pertinent positive or pertinent negative responses have been documented in the HPI. ROS Other: All systems not noted in ROS Statement are negative. Past Medical History Additional Past Medical History / Comment(s): hemorrhoids, hx of anal fissure, hospitalized for rectal bleeding, fever & pain pt states diagnosed with sepsis and colitis and discharged 06/27/20., diarrhea. History of Any Multi-Drug Resistant Organisms: None Reported Past Surgical History: Section, Cholecystectomy, Hernia Repair, Hysterectomy Additional Past Surgical History / Comment(s): hemorrhoidectomy, umbilical hernia, Hysterectomy with inguinal hernia repair. Past Anesthesia/Blood Transfusion Reactions: Previous Problems w/ Anesthesia, Motion Sickness, Postoperative Nausea & Vomiting (PONV) Past Psychological History: No Psychological Hx Reported Smoking Status: Former smoker Past Alcohol Use History: None Reported Past Drug Use History: None Reported - Past Family History Sister(s) Additional Family Medical History / Comment(s): DEPRESSION Mother Family Medical History: Dementia, Diabetes Mellitus Son(s) Additional Family Medical History / Comment(s): ULCERATIVE COLITIS Daughter(s) Family Medical History: Cancer Additional Family Medical History / Comment(s): leukemia General Exam - General Exam Comments Initial Comments: General: The patient is awake and alert, in no distress Eye: Pupils are equal, round and reactive to light, extra-ocular movements are intact. No nystagmus. There is normal conjunctiva bilaterally. No signs of icterus. Ears, nose, mouth and throat: There are moist mucous membranes and no oral lesions. Neck: The neck is supple, there is no tenderness or JVD. Cardiovascular: There is a regular rate and rhythm. No murmur, rub or gallop is appreciated. Respiratory: Lungs are clear to auscultation, respirations are non-labored, breath sounds are equal. No wheezes, stridor, rales, or rhonchi. Gastrointestinal: Soft, non-distended, non-tender abdomen without masses or organomegaly noted. There is no rebound or guarding present. : no bright red blood per rectum, light brown, external hemorrhoid that is ski n color. Musculoskeletal: Normal ROM, no tenderness. Strength 5/5. Sensation intact. Radial pulses equal bilaterally 2+. Neurological: A&O x 3. CN II-XII intact grossly, There are no obvious motor or sensory deficits. Coordination appears grossly intact. Speech is normal. Skin: Skin is warm and dry and no rashes or lesions are noted. Psychiatric: Cooperative, appropriate mood & affect, normal judgment. Limitations: no limitations Course Vital Signs 07/13/20 16:54 Temperature 97.3 F L Pulse Rate 77 Respiratory 18 Rate Blood Pressure 112/68 O2 Sat by Pulse 98 Oximetry Medical Decision Making - Medical Decision Making HgB stable-no tachycardia and no hypotension. Patient appears in no distress she denies any dyspnea palpitations, cold intolerance. Admits to 20 episodes of bright red blood per rectum. Occult +. Charley consulted who is agreeable to admission to medicine with her on consult. SHe states patient may start bowel prep tonight. NPO after midnight. norberto Brown agreeable to care plan and admission. - Lab Data Result diagrams: 07/13/20 17:44 07/13/20 17:44 Lab Results 07/13/20 07/13/20 07/13/20 Range/Units 17:44 17:44 17:44 WBC 5.2 (3.8-10.6) k/uL RBC 4.51 (3.80-5.40) m/uL Hgb 13.3 (11.4-16.0) gm/dL Hct 39.5 (34.0-46.0) % MCV 87.4 (80.0-100.0) fL MCH 29.5 (25.0-35.0) pg MCHC 33.7 (31.0-37.0) g/dL RDW 17.1 H (11.5-15.5) % Plt Count 286 (150-450) k/uL MPV 8.3 Neutrophils % 56 % Lymphocytes % 33 % Monocytes % 5 % Eosinophils % 3 % Basophils % 0 % Neutrophils # 2.9 (1.3-7.7) k/uL Lymphocytes # 1.7 (1.0-4.8) k/uL Monocytes # 0.3 (0-1.0) k/uL Eosinophils # 0.2 (0-0.7) k/uL Basophils # 0.0 (0-0.2) k/uL Anisocytosis Slight PT 11.0 (9.0-12.0) sec INR 1.0 (<1.2) APTT 20.0 L (22.0-30.0) sec Sodium (137-145) mmol/L Potassium (3.5-5.1) mmol/L Chloride (98-107) mmol/L Carbon Dioxide (22-30) mmol/L Anion Gap mmol/L BUN (7-17) mg/dL Creatinine (0.52-1.04) mg/dL Est GFR (CKD-EPI)AfAm (>60 ml/min/1.73 sqM) Est GFR (CKD-EPI)NonAf (>60 ml/min/1.73 sqM) Glucose (74-99) mg/dL Plasma Lactic Acid Jorge (0.7-2.0) mmol/L Calcium (8.4-10.2) mg/dL Total Bilirubin (0.2-1.3) mg/dL AST (14-36) U/L ALT (4-34) U/L Alkaline Phosphatase (38-126) U/L Troponin I (0.000-0.034) ng/mL Total Protein (6.3-8.2) g/dL Albumin (3.5-5.0) g/dL Stool Occult Blood Positive H (Negative) Blood Type Recheck Bld Type Recheck Status Spec Expiration Date 07/13/20 07/13/20 07/13/20 Range/Units 17:44 17:44 17:44 WBC (3.8-10.6) k/uL RBC (3.80-5.40) m/uL Hgb (11.4-16.0) gm/dL Hct (34.0-46.0) % MCV (80.0-100.0) fL MCH (25.0-35.0) pg MCHC (31.0-37.0) g/dL RDW (11.5-15.5) % Plt Count (150-450) k/uL MPV Neutrophils % % Lymphocytes % % Monocytes % % Eosinophils % % Basophils % % Neutrophils # (1.3-7.7) k/uL Lymphocytes # (1.0-4.8) k/uL Monocytes # (0-1.0) k/uL Eosinophils # (0-0.7) k/uL Basophils # (0-0.2) k/uL Anisocytosis PT (9.0-12.0) sec INR (<1.2) APTT (22.0-30.0) sec Sodium 138 (137-145) mmol/L Potassium 5.3 H (3.5-5.1) mmol/L Chloride 103 (98-107) mmol/L Carbon Dioxide 26 (22-30) mmol/L Anion Gap 9 mmol/L BUN 8 (7-17) mg/dL Creatinine 0.59 (0.52-1.04) mg/dL Est GFR (CKD-EPI)AfAm >90 (>60 ml/min/1.73 sqM) Est GFR (CKD-EPI)NonAf >90 (>60 ml/min/1.73 sqM) Glucose 91 (74-99) mg/dL Plasma Lactic Acid Jorge 1.0 (0.7-2.0) mmol/L Calcium 9.5 (8.4-10.2) mg/dL Total Bilirubin 1.8 H (0.2-1.3) mg/dL AST 49 H (14-36) U/L ALT 41 H (4-34) U/L Alkaline Phosphatase 33 L (38-126) U/L Troponin I 0.016 (0.000-0.034) ng/mL Total Protein 8.1 (6.3-8.2) g/dL Albumin 4.8 (3.5-5.0) g/dL Stool Occult Blood (Negative) Blood Type Recheck Bld Type Recheck Status Spec Expiration Date 07/13/20 Range/Units 18:40 WBC (3.8-10.6) k/uL RBC (3.80-5.40) m/uL Hgb (11.4-16.0) gm/dL Hct (34.0-46.0) % MCV (80.0-100.0) fL MCH (25.0-35.0) pg MCHC (31.0-37.0) g/dL RDW (11.5-15.5) % Plt Count (150-450) k/uL MPV Neutrophils % % Lymphocytes % % Monocytes % % Eosinophils % % Basophils % % Neutrophils # (1.3-7.7) k/uL Lymphocytes # (1.0-4.8) k/uL Monocytes # (0-1.0) k/uL Eosinophils # (0-0.7) k/uL Basophils # (0-0.2) k/uL Anisocytosis PT (9.0-12.0) sec INR (<1.2) APTT (22.0-30.0) sec Sodium (137-145) mmol/L Potassium (3.5-5.1) mmol/L Chloride (98-107) mmol/L Carbon Dioxide (22-30) mmol/L Anion Gap mmol/L BUN (7-17) mg/dL Creatinine (0.52-1.04) mg/dL Est GFR (CKD-EPI)AfAm (>60 ml/min/1.73 sqM) Est GFR (CKD-EPI)NonAf (>60 ml/min/1.73 sqM) Glucose (74-99) mg/dL Plasma Lactic Acid Jorge (0.7-2.0) mmol/L Calcium (8.4-10.2) mg/dL Total Bilirubin (0.2-1.3) mg/dL AST (14-36) U/L ALT (4-34) U/L Alkaline Phosphatase (38-126) U/L Troponin I (0.000-0.034) ng/mL Total Protein (6.3-8.2) g/dL Albumin (3.5-5.0) g/dL Stool Occult Blood (Negative) Blood Type Recheck No Previous Record Bld Type Recheck Status CABO Indicated Spec Expiration Date 07/16/2020 - 2339 Disposition Clinical Impression: GI bleed Disposition: ADMITTED IP TO THIS [facility] Condition: Stable Is patient prescribed a controlled substance at d/c from ED?: No Referrals: Helder Conde MD [Primary Care Provider] - 1-2 days Time of Disposition: 18:54 Decision to Admit Reason: Admit from EC Decision Date: 07/13/20 Decision Time: 18:54
--- NOTE | 2020-07-13 23:18 | P.HPIM ---
History of Present Illness H&P Date: 07/13/20 Patient is a 45-year-old female who presented to the emergency room with complaints of GI bleeding and abdominal pain. Of note, the patient was recently admitted to the hospital on 06/26 with complaints of rectal pain, at which time she was diagnosed with colitis and an anal fissure. The patient now notes that she was in her usual state of health until yesterday evening at around 11 PM when she suddenly developed bright red blood per rectum. She reports having 15- 20 grossly bloody and painful loose bowel movements. She contacted Dr. Reyes's (GI) office earlier today who advised her to come to the emergency room. Patient reports that her BMs are soft, with bright red blood that stains the water, without mucus, with rectal pain upon passage of the BMs. She also reports diffuse lower abdominal pain ever since the onset of her diarrhea. Reports some nausea. Denied fever, chills, or diarrhea. Also denied chest pain, shortness of breath, cough, dizziness, or visual disturbances. In the emergency room, laboratory evaluation revealed a hemoglobin of 13.3, platelets 286, T bili 1.8, AST 49, ALT 41, alk phos 33, and troponin of 0.016. The case was discussed with GI process control board operator who recommended to prepare the patient for colonoscopy and EGD in the morning. Review of Systems Pertinent positives and negatives as discussed in HPI, a complete review of systems was performed and all other systems are negative. Past Medical History Additional Past Medical History / Comment(s): hemorrhoids, hx of anal fissure, hospitalized for rectal bleeding, fever & pain pt states diagnosed with sepsis and colitis and discharged 06/27/20., diarrhea. History of Any Multi-Drug Resistant Organisms: None Reported Past Surgical History: Section, Cholecystectomy, Hernia Repair, Hysterectomy Additional Past Surgical History / Comment(s): hemorrhoidectomy, umbilical hernia, Hysterectomy with inguinal hernia repair. Past Anesthesia/Blood Transfusion Reactions: Previous Problems w/ Anesthesia, Motion Sickness, Postoperative Nausea & Vomiting (PONV) Past Psychological History: No Psychological Hx Reported Smoking Status: Former smoker Past Alcohol Use History: None Reported Past Drug Use History: None Reported - Past Family History Sister(s) Additional Family Medical History / Comment(s): DEPRESSION Mother Family Medical History: Dementia, Diabetes Mellitus Son(s) Additional Family Medical History / Comment(s): ULCERATIVE COLITIS Daughter(s) Family Medical History: Cancer Additional Family Medical History / Comment(s): leukemia Medications and Allergies Home Medications Medication Instructions Recorded Confirmed Type No Known Home Medications 07/13/20 07/13/20 History Allergies Allergy/AdvReac Type Severity Reaction Status Date / Time fluconazole [From Diflucan] Allergy HIVES Verified 07/13/20 17:55 Physical Exam Vitals: Vital Signs Temp Pulse Pulse Resp BP BP Pulse Ox 07/13/20 22:00 99 F 77 18 103/69 97 07/13/20 21:29 80 16 127/87 98 07/13/20 16:54 97.3 F L 77 18 112/68 98 Intake and Output 07/13/20 07/13/20 07/14/20 14:59 22:59 06:59 Intake Total 100 Balance 100 Intake: Oral 100 Other: Weight 65.771 kg General: non toxic, no distress, appears at stated age, normal weight Derm: no unusual rashes/lesions no unusual ecchymoses, warm, dry Head: atraumatic, normocephalic, symmetric Eyes: EOMI, no lid lag, anicteric sclera, pupils equal round reactive to light ENT: Nose and ears atraumatic, no thrush, no pharyngeal erythema Neck: No thyromegaly, no cervical lymphadenopathy, trachea midline, supple Mouth: no lip lesion, mucus membranes moist Cardiovascular: S1S2 reg, no murmur, positive posterior tibial pulse bilateral, no edema, capillary refill less than 2 seconds Lungs: CTA bilateral, no rhonchi, no rales , no accessory muscle use Abdominal: soft, mild lower abdominal tenderness, no guarding, no appreciable organomegaly, normal bowel sounds Ext: no gross muscle atrophy, muscle strength 5 out of 5 in all 4 extremities grossly, no contractures, Neuro: CN II-XI grossly intact, light touch intact all 4 extremities, finger to nose within normal limits, Psych: Alert, oriented, appropriate affect Results CBC & Chem 7: 07/13/20 17:44 07/13/20 17:44 Labs: Abnormal Lab Results - Last 24 Hours (Table) 07/13/20 07/13/20 07/13/20 Range/Units 17:44 17:44 17:44 RDW 17.1 H (11.5-15.5) % APTT 20.0 L (22.0-30.0) sec Potassium (3.5-5.1) mmol/L Total Bilirubin (0.2-1.3) mg/dL AST (14-36) U/L ALT (4-34) U/L Alkaline Phosphatase (38-126) U/L Stool Occult Blood Positive H (Negative) 07/13/20 Range/Units 17:44 RDW (11.5-15.5) % APTT (22.0-30.0) sec Potassium 5.3 H (3.5-5.1) mmol/L Total Bilirubin 1.8 H (0.2-1.3) mg/dL AST 49 H (14-36) U/L ALT 41 H (4-34) U/L Alkaline Phosphatase 33 L (38-126) U/L Stool Occult Blood (Negative) Assessment and Plan Plan: Hematochezia, with history of hemorrhoids and anal fissure -Scheduled for EGD/colonoscopy in the morning -Nothing by mouth for now -D5NS 100 ml/hr -Continue with Protonix IV -Trend CBC Abnormal LFTs -Obtain RUQ US DVT prophylaxis -IPCDs The patient is admitted with an anticipated less than 2 midnight stay for evaluation of hematochezia CODE STATUS: Full Code Discussed with: Patient, Anticipated discharge date: in am Anticipated discharge place: home A total of 35 minutes was spent on the care of this complex patient more than 50% of the time was spent in counseling and care coordination.
[2020-07-14] MEDS: DEXTROSE 5%-0.9% NACL 1,000 ML IV SCH ×2 (04:29→08:36)
[2020-07-14 08:56] LABS: HCT 36.5 % (37.2-46.3); HGB 11.8 g/dL (12.0-15.0); MCH 28.9 pg (27.0-32.0); MCHC 32.3 g/dL (32.0-37.0); MCV 89.2 fL (80.0-97.0); Mean Platelet Volume 10.6 fL (9.5-12.2); Platelet Count 306 X 10*3/uL (140-440); RBC 4.09 X 10*6/uL (4.10-5.20); RDW 15.6 % (11.5-14.5); WBC 4.85 X 10*3/uL (4.50-10.00)
[2020-07-14] MEDS ORDERED: PANTOPRAZOLE 40 MG/10 ML VIAL IVP SCH (09:00)
--- NOTE | 2020-07-14 09:04 | US ---
EXAMINATION TYPE: US abdomen limited DATE OF EXAM: 07/14/2020 COMPARISON: CT 2020 CLINICAL HISTORY: RUQ - abnormal LFTs. Rectal bleeding, abdomen pain, nausea Exam done portable. EXAM MEASUREMENTS: Liver Length: 14.8 cm CBD: 0.4 cm Right Kidney: 9.8 x 3.9 x 4.2 cm Pancreas: visualized portions wnl, limited by overlying midline bowel gas Liver: coarse echotexture Gallbladder: surgically absent Evidence for sonographic Goodrich's sign: no CBD: visualized portions wnl, limited by overlying bowel gas Right Kidney: wnl IMPRESSION: Correlate for underlying hepatocellular disease as noted on prior CT. Postop change. Ther e are some limitations to the exam.
[2020-07-14 10:57] VITALS: RESP 16
[2020-07-14] MEDS ORDERED: ACETAMINOPHEN TAB 325 MG TAB PO PRN (13:08)
[2020-07-14] MEDS ORDERED: ONDANSETRON 4 MG/2 ML VIAL IVP PRN (13:08)
[2020-07-14] MEDS ORDERED: IV FLUID CONTINUATION 1,000 ML IV ONE (13:34)
[2020-07-14] MEDS ORDERED: LIDOCAINE 1% INJ 10MG/ML (20 ML MDV) ONE (13:37)
[2020-07-14] MEDS ORDERED: PROPOFOL 10 MG/ML 20 ML VIAL IV ONE (13:37)
--- NOTE | 2020-07-14 13:58 | P.PCN ---
Date of Procedure: 07/14/20 Procedure(s) Performed: Brief history: Patient is a pleasant scheduled for an elective upper endoscopy as well as colonoscopy as a part of evaluation of Chronic intermittent Diarrhea and rectal bleeding on and off for the last few weeks duration. 2 days ago she started having severe diarrhea and had stent 12 bowel movements all bloody and mucous and hence into the emergency room and subsequently admitted hospital for further management. Procedure performed: Esophagogastroduodenoscopy with biopsy Colonoscopy with biopsy Preoperative diagnosis: Diarrhea and rectal bleeding for 2 days' duration Anesthesia: MAC Procedure: After informed consent was obtained from the patient was brought into the endoscopy unit and IV sedation was administered by anesthesia under continuous monitoring. Initially upper endoscopy was done. The Olympus GF 160 video endoscope was inserted inserted into the mouth and esophagus intubated without any difficulty and was gradually advanced into the stomach and duodenum and carefully examined. The bulb and second part of the duodenum appeared normal. biopsies were done from the duodenum to rule out celiac disease. The scope was then withdrawn into the stomach adequately insufflated with air and upon careful examination the antrum Mild gastritis and biopsies were done from this area. The body, cardia and fundus appeared normal. The scope was then withdrawn into the esophagus. The GE junction was located at 40 cm to the incisors. It appeared regular with no erythema erosions or ulcerations. Rest of the esophagus appeared normal. Patient tolerated the procedure well. At this time the patient continued to remain sedation. Initial digital rectal examination was normal. Olympus CF 160 video colonoscope was then inserted into the rectum and gradually advanced to the cecum without any difficulty. Careful examination was performed as the scope was gradually being withdrawn. The prep was excellent. terminal ileum was intubated and 20 cm visualized and appeared normal. and his were done from the terminal ileum.The cecum, ascending colon, transverse colon, descending colon, sigmoid colon and rectum appeared normal. Biopsies were also done from ascending and descending colon to rule out microscopic/collagenous colitis Retroflexion was performed in the rectum and 2 internal hemorrhoids with oozing noted. Patient tolerated the procedure well. Impression: 1. Upper endoscopy revealed minimal antral gastritis. 2. Colonoscopy revealed small internal hemorrhoids but no evidence of colitis or colorectal neoplasia Recommendations: Findings of this examination were discussed with the patient as well as her family. She was advised to follow with the biopsy results. identified with this as tolerated. She'll be started on hydrocortisone suppositories twice daily. She can be discharged home today with outpatient follow-up in a week
[2020-07-14] MEDS ORDERED: HYDROCORTISONE SUPPOSITORY 25 MG SUPP RECTAL SCH (14:00)
[2020-07-14 14:22] VITALS: BP 105/65; PULSE 83; TEMP 97.6
--- NOTE | 2020-07-14 17:49 | CONS ---
CONSULTATION DATE OF SERVICE: 07/14/2020 REQUESTING PHYSICIAN: Dr. Helder Conde. REASON FOR CONSULTATION: Abdominal pain, diarrhea and rectal bleeding of 2 days duration. HISTORY OF PRESENT ILLNESS: The patient is a 45-year-old pleasant white female who came to the emergency room. Was scheduled for an outpatient EGD and colonoscopy today. Went to the emergency room yesterday evening after having multiple episodes of diarrhea with rectal bleeding that started the night before. The patient had a similar episode in June of this year and was admitted to the hospital and treated for possible infectious colitis with antibiotics and was discharged home. She did well for 2 weeks and then started having some rectal bleeding intermittently and intermittent diarrhea. However, 2 days ago she had about 15-20 bowel movements with blood and mucus in the stool and hence came to the ER and subsequently admitted to the hospital for further evaluation. She is scheduled for EGD and colonoscopy today. Son diagnosed with ulcerative colitis at a young age. PAST MEDICAL HISTORY: Significant for anal fissure. PAST SURGICAL HISTORY: , cholecystectomy, hernia repair, hysterectomy, hemorrhoidectomy. MEDICATIONS: None. ALLERGIES: FLUCONAZOLE. SOCIAL HISTORY: No smoking. No alcohol use. FAMILY HISTORY: Depression. Mother diabetes mellitus. Son with ulcerative colitis. REVIEW OF SYSTEMS: CARDIOPULMONARY: No chest pain or shortness of breath. : No dysuria or hematuria. MUSCULOSKELETAL: Unremarkable. SKIN: Unremarkable. ENDOCRINE: Unremarkable. PSYCHIATRIC: Unremarkable. NEUROLOGY: Unremarkable. ENT/VISION: Unremarkable. CONSTITUTIONAL: No recent weight loss. No fever, chills, night sweats. PHYSICAL EXAMINATION: GENERAL: Appears comfortable. No apparent distress. VITAL SIGNS: Stable. Blood pressure is 127/87, pulse rate 80, temperature 99. HEENT: Examination unremarkable. Conjunctivae are pink. Sclerae anicteric. Oral cavity no lesions. NECK: No JVD or lymph node enlargement. CHEST: Clear to auscultation. HEART: Regular rate and rhythm. ABDOMEN: Soft. Bowel sounds are positive. No organomegaly. There is mild tenderness in the lower abdominal area. EXTREMITIES: No pedal edema. SKIN: No rashes. NEUROLOGIC: Alert and oriented x3. No focal deficits. LABS: WBC 5.2, hemoglobin 13.3, platelets normal. Basic metabolic panel is within normal limits. T bilirubin is 1.8, AST 49, ALT 41, alkaline phosphatase 33. Hemoglobin today 11.8 g/dL. Stool occult blood is positive. IMPRESSION: This lady presented to the hospital with multiple episodes of diarrhea with bright red blood per rectum for the last 2 days duration. She had a similar episode for which she was hospitalized in June for possible infectious colitis, treated with antibiotics and sent home. Since then has been having intermittent diarrhea with rectal bleeding. She does have family history of ulcerative colitis diagnosed in the son. Rule out irritable bowel disease. RECOMMENDATIONS: Will proceed with EGD and colonoscopy today. Based on the findings, further recommendations will follow. Discussed with the patient risks, benefits and complications and she is agreeable to it. Thank you for this consultation. MMODL / IJN: [id number] /
--- NOTE | 2020-07-15 09:52 | P.DS ---
Providers Date of admission: 07/13/20 18:24 Expected date of discharge: 07/14/20 Attending physician: Ra Webb Consults: 07/13/20 18:31 Consult Physician Routine Consulting Provider: Lidia Reyes Consult Reason/Comments: GI bleed Do you want consulting provider notified?: Yes Primary care physician: Helder Conde [facility] Course: Chief Complaint: Abdominal pain History of presenting complaint: This is a pleasant 45-year-old patient of Dr. Helder Conde. Patient has a long- standing history of hemorrhoids. About 3 weeks ago was Admitted with ascending colitis possibly infectious, anal fissure, painful external hemorrhoid. Treated with IV Zosyn. Topical/rectal lidocaine and steroid. Had responded well. Patient now presents for a few bloody bowel movements for one day. No fever no chills. Today-so the patient and this morning. She was awaiting endoscopy. Late in the day she did have upper and lower GI. Found to have internal hemorrhoids. No obvious evidence of colitis. Patient was cleared by GI to go home. We will follow-up with them in the office. Admitted Attorneys: Dr. Apryl Reyes from GI Social history: Lives with family. Does not smoke or drink alcohol. Physical examination: VITAL SIGNS: 97.6, 83, 16, 105/65, 100% room air GENERAL: Sitting of the edge of the bed, comfortable EYES: Pupils equal. Conjunctiva normal. HEART: First and second heart sounds are normal; no edema. LUNGS: Respiratory rate normal; clear to auscultation. ABDOMEN: Soft, mild abdominal tenderness, no guarding rigidity, liver spleen not palpable, no masses palpable. PSYCH: [Alert and oriented x3; mood and affect normal. INVESTIGATIONS, reviewed in the clinical context: WBC 4.85 hemoglobin 11.8 platelets 306 Previous testing: Hemoglobin 13.3 Assessment and plan: -Acute GI bleed possibly be from internal hemorrhoids - external hemorrhoids -Anal fissure. On topical lidocaine gel before BM. Anusol HC -Acute GI blood loss anemia. Disposition: Home Patient Condition at Discharge: Stable Plan - Discharge Summary Discharge Rx Participant: No New Discharge Prescriptions: New Hydrocortisone Suppository [Anusol-Hc] 25 mg RECTAL BID supp Discharge Medication List Hydrocortisone Suppository [Anusol-Hc] 25 mg RECTAL BID supp 03/05/21 [Rx] Follow up Appointment(s)/Referral(s): Helder Conde MD [Primary Care Provider] - 07/19/20 10:00 am (Appointment set with Ana WINTER) Lidia Reyes MD [STAFF PHYSICIAN] - 1 Week (Office closed at time of discharge please call FridayJuly 17 to set up a follow up appointment) Patient Instructions/Handouts: Hemorrhoids (DC)
== END 2020-07-14 16:20 ==
LOC: EC 16:34 → 6NMEDSUR 18:24 → 4SSUR 21:12
PROVIDERS: ADMIT Hospitalist; ATTEND Hospitalist
DX: K92.2 Gastrointestinal hemorrhage, unspecified (principal); D62 Acute posthemorrhagic anemia; K60.2 Anal fissure, unspecified; K64.8 Other hemorrhoids; K64.4 Residual hemorrhoidal skin tags; K58.9 Irritable bowel syndrome, unspecified; Z83.3 Family history of diabetes mellitus; Z81.8 Family history of other mental and behavioral disorders; Z80.6 Family history of leukemia; Z90.710 Acquired absence of both cervix and uterus; Z87.891 Personal history of nicotine dependence; Z20.822 Contact with and (suspected) exposure to COVID-19
CPT/HCPCS: 96361 ×3; 96374; 99285; 36415; 86900; 86901; 88305; 80053; 83605; 84484; 85025; 85027; 85610; 85730; 86850; 82272; 87635; 76705; 45380; 43239; G0378 ×3; J2405; J2001; J2704; C9113 ×2

== ENCOUNTER 2021-04-04 09:59 | Emergency (ER) | payer BC ==
[2021-04-04 10:14] VITALS: BP 129/78; TEMP 99.2
[2021-04-04] MEDS ORDERED: SODIUM CHLORIDE 0.9% 500 ML 500 ML IV STA (10:28)
--- NOTE | 2021-04-04 10:54 | ED ---
SOB HPI - General Chief Complaint: Shortness of Breath Stated Complaint: SOB Time Seen by Provider: 04/04/21 10:08 Source: patient, EMS, RN notes reviewed Mode of arrival: EMS Limitations: no limitations - History of Present Illness Initial Comments: Patient is a 46-year-old female presenting to the emergency department via EMS for shortness of breath and tachycardia. The patient states that yesterday she started feeling like her heart was racing and that she could not take in a deep breath. She states it continued this morning so she went to her primary care's office. He stated her heart rate was high and since she had a recent covid exposure through her children, so they sent her in to rule out a PE. Patient denies any chest pain although she feels like her chest is a little tight secondary to the rapid breathing. She feels like this could be anxiety regarding covid. Her son tested positive yesterday. She denies any nausea or vomiting, no abdominal pain. She denies having a cough, congestion. She states her children were recently exposed to covid at work, she has not had been tested yet. She denies any fevers. Upon arrival to the ER, temperature is 99.2, pulse is 112, 99% on room air. She has no further complaints. - Related Data Home Medications Medication Instructions Recorded Confirmed Clobetasol Propionate [Temovate 1 applic TOPICAL BID 04/04/21 04/04/21 0.05% Cream] Fluticasone Nasal Randolph [Flonase 2 spr EA NOSTRIL DAILY PRN 04/04/21 04/04/21 Nasal Randolph] Allergies Allergy/AdvReac Type Severity Reaction Status Date / Time fluconazole [From Diflucan] Allergy Rash/Hives Verified 04/04/21 12:11 Review of Systems ROS Statement: Those systems with pertinent positive or pertinent negative responses have been documented in the HPI. ROS Other: All systems not noted in ROS Statement are negative. Past Medical History Additional Past Medical History / Comment(s): hemorrhoids, hx of anal fissure, hospitalized for rectal bleeding, fever & pain pt states diagnosed with sepsis and colitis and discharged 06/27/20., diarrhea. History of Any Multi-Drug Resistant Organisms: None Reported Past Surgical History: Section, Cholecystectomy, Hernia Repair, Hysterectomy Additional Past Surgical History / Comment(s): hemorrhoidectomy, umbilical her jj, Hysterectomy with inguinal hernia repair. Past Anesthesia/Blood Transfusion Reactions: Previous Problems w/ Anesthesia, Motion Sickness, Postoperative Nausea & Vomiting (PONV) Past Psychological History: No Psychological Hx Reported Smoking Status: Former smoker Past Alcohol Use History: None Reported Past Drug Use History: None Reported - Past Family History Sister(s) Additional Family Medical History / Comment(s): DEPRESSION Mother Family Medical History: Dementia, Diabetes Mellitus Son(s) Additional Family Medical History / Comment(s): ULCERATIVE COLITIS Daughter(s) Family Medical History: Cancer Additional Family Medical History / Comment(s): leukemia General Exam - General Exam Comments Initial Comments: GENERAL: Patient is well-developed and well-nourished. Patient is nontoxic and in no acute distress, appears anxious. HEAD: Atraumatic, normocephalic. EYES: Pupils equal round and reactive to light, extraocular movements intact, sclera anicteric, conjunctiva are normal. Eyelids were unremarkable. ENT: Oropharynx clear without exudates. Moist mucous membranes. NECK: Normal range of motion, supple without lymphadenopathy or JVD. LUNGS: Unlabored respirations. Breath sounds clear to auscultation bilaterally and equal. No wheezes rales or rhonchi. HEART: Tachycardic rate and rhythm without murmurs, rubs or gallops. ABDOMEN: Soft, nontender, normoactive bowel sounds. No guarding, no rebound. No masses appreciated. MUSCULOSKELETAL: Normal extremities with adequate strength and normal range of motion, no pitting or edema. No clubbing or cyanosis. NEUROLOGICAL: Patient is alert and oriented x 3. SKIN: Warm, Dry, normal turgor, no rashes or lesions noted. Limitations: no limitations Course Vital Signs 04/04/21 04/04/21 10:11 10:26 Temperature 99.2 F Pulse Rate 112 H Respiratory 21 22 Rate Blood Pressure 129/78 O2 Sat by Pulse 99 Oximetry Medical Decision Making - Medical Decision Making Patient is a 46-year-old female presenting via EMS from her doctor's office for tachycardia, rule out PE. Exposed to covid, her son tested positive yesterday. She has not been tested. She is having some shortness of breath rapid breathing since yesterday. No chest pains only some mild tightness. No nausea or vomiting. Labs are unremarkable including normal white count, normal d-dimer at 0.20, troponin is normal. Rapid quick test is positive. Chest x-ray shows no acute process. Patient was given some fluids here in the ER and hasn't resting comfortably. Patient's vital signs remained stable, heart rate has been under 100 during her stay. I believe that the tachycardia is most likely related to her anxiousness. I did recommend monoclonal antibodies however patient refused. I did recommend a small dose of Benadryl at nighttime to help with her anxiousness. She is agreeable to this. Return parameters were discussed with her and she verbalized understanding. Patient is stable for discharge. Case discussed with Dr. Larose. - Lab Data Result diagrams: 04/04/21 10:36 04/04/21 10:36 Lab Results 04/04/21 04/04/21 04/04/21 Range/Units 10:36 10:36 10:36 WBC 7.1 (3.8-10.6) k/uL RBC 4.78 (3.80-5.40) m/uL Hgb 13.9 (11.4-16.0) gm/dL Hct 42.4 (34.0-46.0) % MCV 88.7 (80.0-100.0) fL MCH 29.0 (25.0-35.0) pg MCHC 32.7 (31.0-37.0) g/dL RDW 16.7 H (11.5-15.5) % Plt Count 251 (150-450) k/uL MPV 7.6 Neutrophils % 86 % Lymphocytes % 8 % Monocytes % 5 % Eosinophils % 1 % Basophils % 0 % Neutrophils # 6.1 (1.3-7.7) k/uL Lymphocytes # 0.5 L (1.0-4.8) k/uL Monocytes # 0.3 (0-1.0) k/uL Eosinophils # 0.1 (0-0.7) k/uL Basophils # 0.0 (0-0.2) k/uL Anisocytosis Slight PT 11.2 (9.0-12.0) sec INR 1.1 (<1.2) APTT 24.5 (22.0-30.0) sec D-Dimer 0.20 (<0.60) mg/L FEU Sodium 136 L (137-145) mmol/L Potassium 4.2 (3.5-5.1) mmol/L Chloride 107 (98-107) mmol/L Carbon Dioxide 18 L (22-30) mmol/L Anion Gap 11 mmol/L BUN 15 (7-17) mg/dL Creatinine 0.65 (0.52-1.04) mg/dL Est GFR (CKD-EPI)AfAm >90 (>60 ml/min/1.73 sqM) Est GFR (CKD-EPI)NonAf >90 (>60 ml/min/1.73 sqM) Glucose 111 H (74-99) mg/dL Plasma Lactic Acid Jorge (0.7-2.0) mmol/L Calcium 9.7 (8.4-10.2) mg/dL Magnesium 1.9 (1.6-2.3) mg/dL Total Bilirubin 1.7 H (0.2-1.3) mg/dL AST 28 (14-36) U/L ALT 23 (4-34) U/L Alkaline Phosphatase 52 (38-126) U/L Troponin I (0.000-0.034) ng/mL NT-Pro-B Natriuret Pep pg/mL Total Protein 7.8 (6.3-8.2) g/dL Albumin 4.6 (3.5-5.0) g/dL Coronavirus (PCR) (Not Detectd) 04/04/21 04/04/21 04/04/21 Range/Units 10:36 10:36 10:36 WBC (3.8-10.6) k/uL RBC (3.80-5.40) m/uL Hgb (11.4-16.0) gm/dL Hct (34.0-46.0) % MCV (80.0-100.0) fL MCH (25.0-35.0) pg MCHC (31.0-37.0) g/dL RDW (11.5-15.5) % Plt Count (150-450) k/uL MPV Neutrophils % % Lymphocytes % % Monocytes % % Eosinophils % % Basophils % % Neutrophils # (1.3-7.7) k/uL Lymphocytes # (1.0-4.8) k/uL Monocytes # (0-1.0) k/uL Eosinophils # (0-0.7) k/uL Basophils # (0-0.2) k/uL Anisocytosis PT (9.0-12.0) sec INR (<1.2) APTT (22.0-30.0) sec D-Dimer (<0.60) mg/L FEU Sodium (137-145) mmol/L Potassium (3.5-5.1) mmol/L Chloride (98-107) mmol/L Carbon Dioxide (22-30) mmol/L Anion Gap mmol/L BUN (7-17) mg/dL Creatinine (0.52-1.04) mg/dL Est GFR (CKD-EPI)AfAm (>60 ml/min/1.73 sqM) Est GFR (CKD-EPI)NonAf (>60 ml/min/1.73 sqM) Glucose (74-99) mg/dL Plasma Lactic Acid Jorge 1.7 (0.7-2.0) mmol/L Calcium (8.4-10.2) mg/dL Magnesium (1.6-2.3) mg/dL Total Bilirubin (0.2-1.3) mg/dL AST (14-36) U/L ALT (4-34) U/L Alkaline Phosphatase (38-126) U/L Troponin I <0.012 (0.000-0.034) ng/mL NT-Pro-B Natriuret Pep 84 pg/mL Total Protein (6.3-8.2) g/dL Albumin (3.5-5.0) g/dL Coronavirus (PCR) (Not Detectd) 04/04/21 Range/Units 10:36 WBC (3.8-10.6) k/uL RBC (3.80-5.40) m/uL Hgb (11.4-16.0) gm/dL Hct (34.0-46.0) % MCV (80.0-100.0) fL MCH (25.0-35.0) pg MCHC (31.0-37.0) g/dL RDW (11.5-15.5) % Plt Count (150-450) k/uL MPV Neutrophils % % Lymphocytes % % Monocytes % % Eosinophils % % Basophils % % Neutrophils # (1.3-7.7) k/uL Lymphocytes # (1.0-4.8) k/uL Monocytes # (0-1.0) k/uL Eosinophils # (0-0.7) k/uL Basophils # (0-0.2) k/uL Anisocytosis PT (9.0-12.0) sec INR (<1.2) APTT (22.0-30.0) sec D-Dimer (<0.60) mg/L FEU Sodium (137-145) mmol/L Potassium (3.5-5.1) mmol/L Chloride (98-107) mmol/L Carbon Dioxide (22-30) mmol/L Anion Gap mmol/L BUN (7-17) mg/dL Creatinine (0.52-1.04) mg/dL Est GFR (CKD-EPI)AfAm (>60 ml/min/1.73 sqM) Est GFR (CKD-EPI)NonAf (>60 ml/min/1.73 sqM) Glucose (74-99) mg/dL Plasma Lactic Acid Jorge (0.7-2.0) mmol/L Calcium (8.4-10.2) mg/dL Magnesium (1.6-2.3) mg/dL Total Bilirubin (0.2-1.3) mg/dL AST (14-36) U/L ALT (4-34) U/L Alkaline Phosphatase (38-126) U/L Troponin I (0.000-0.034) ng/mL NT-Pro-B Natriuret Pep pg/mL Total Protein (6.3-8.2) g/dL Albumin (3.5-5.0) g/dL Coronavirus (PCR) Detected A (Not Detectd) - EKG Data EKG Comments: Sinus tachycardia, right HO enlargement, pulmonary disease pattern, no signs of acute ST segment elevation. Ventricular rate 114, MD interval 146, QT 318. Disposition Clinical Impression: COVID-19, Anxiety Disposition: HOME SELF-CARE Condition: Stable Instructions (If sedation given, give patient instructions): Coronavirus Disease 2019 (COVID-19) Additional Instructions: Please return to the Emergency Department if symptoms worsen or any other concerns. May take Tylenol and Motrin for any headaches or body aches. May take any [id number] medications for congestion. Recommend following up with your primary care. Is patient prescribed a controlled substance at d/c from ED?: No Referrals: Helder Conde MD [Primary Care Provider] - 1-2 days Time of Disposition: 13:02
[2021-04-04 10:56] LABS: Anisocytosis Slight; Basophils % (A) 0 %; Eosinophils # (A) 0.1 k/uL (0-0.7); Eosinophils % (A) 1 %; HCT 42.4 % (34.0-46.0); HGB 13.9 gm/dL (11.4-16.0); Lymphocytes # (A) 0.5 k/uL (1.0-4.8); Lymphocytes % (A) 8 %; MCHC 32.7 g/dL (31.0-37.0); MCV 88.7 fL (80.0-100.0); Mean Platelet Volume 7.6; Monocytes # (A) 0.3 k/uL (0-1.0); Monocytes % (A) 5 %; Neutrophils # (A) 6.1 k/uL (1.3-7.7); Neutrophils % (A) 86 %; Platelet Count 251 k/uL (150-450); RBC 4.78 m/uL (3.80-5.40); RDW 16.7 % (11.5-15.5); WBC 7.1 k/uL (3.8-10.6)
--- NOTE | 2021-04-04 11:14 | XR ---
EXAMINATION TYPE: XR chest 2V DATE OF EXAM: 04/04/2021 COMPARISON: Chest x-ray 06/23/2020 HISTORY: Difficulty breathing, shortness of breath and tachycardia TECHNIQUE: Frontal and lateral views of the chest are obtained. FINDINGS: There is no focal air space opacity, pleural effusion, or pneumothorax seen. The cardiac silhouette size is within normal limits. The osseous structures are intact, there is a spinal curva ture. There are overlying artifacts.. IMPRESSION: No acute cardiopulmonary process.
[2021-04-04 11:22] LABS: ALT 23 U/L (4-34); AST 28 U/L (14-36); African American GFR (CKD) >90 (>60 ml/min/1.73 sqM); Albumin 4.6 g/dL (3.5-5.0); Alkaline Phosphatase 52 U/L (38-126); Anion Gap 11 mmol/L; Blood Urea Nitrogen 15 mg/dL (7-17); Calcium 9.7 mg/dL (8.4-10.2); Carbon Dioxide 18 mmol/L (22-30); Chloride 107 mmol/L (98-107); Glucose 111 mg/dL (74-99); Magnesium 1.9 mg/dL (1.6-2.3); Non-African American GFR(CKD) >90 (>60 ml/min/1.73 sqM); Potassium 4.2 mmol/L (3.5-5.1); Sodium 136 mmol/L (137-145); Total Bilirubin 1.7 mg/dL (0.2-1.3); Total Protein 7.8 g/dL (6.3-8.2)
[2021-04-04 11:23] LABS: Partial Thromboplastin Time 24.5 sec (22.0-30.0)
[2021-04-04 12:22] LABS: INR 1.1 (<1.2); Prothrombin Time 11.2 sec (9.0-12.0)
[2021-04-04 13:23] VITALS: PULSE 74; RESP 16
== END 2021-04-04 13:23 | disposition home or self-care (01) ==
LOC: EC 09:59
DX: U07.1 COVID-19 (principal); F41.9 Anxiety disorder, unspecified; Z90.49 Acquired absence of other specified parts of digestive tract; Z90.710 Acquired absence of both cervix and uterus; Z87.891 Personal history of nicotine dependence
CPT/HCPCS: 36415; 71046; 80053; 83605; 83735; 83880; 84484; 85025; 85379; 85610; 85730; 87635; 93005; 99285

== ENCOUNTER 2021-04-10 10:48 | Emergency (ER) | payer BC ==
[2021-04-10] MEDS ORDERED: SODIUM CHLORIDE 0.9% 1,000 ML IV STA ×2 (18:28→21:15)
[2021-04-10] MEDS ORDERED: ONDANSETRON 4 MG/2 ML VIAL IVP STA ×2 (18:28→21:16)
--- NOTE | 2021-04-10 18:35 | ED ---
General Adult HPI - General Chief complaint: Recheck/Abnormal Lab/Rx Stated complaint: Covid+, weakness Time Seen by Provider: 04/10/21 18:13 Source: patient, RN notes reviewed Mode of arrival: wheelchair Limitations: no limitations - History of Present Illness Initial comments: 46-year-old female presents to the emergency department with complaints of diarrhea since Friday. States she was diagnosed with Covid on Friday the and has been experiencing intermittent chest tightness with some shortness of breath since. States she also has a headache, fever, and significant fatigue. Patient states she has not been able to tolerate much oral intake. States she is not vaccinated and declines Monoclonal antibody infusion. - Related Data Previous Rx's Medication Instructions Recorded Dexamethasone [Decadron] 6 mg PO DAILY 10 Days #10 tablet 04/10/21 Diphenox-Atrop 2.5-0.025 mg 1 tab PO TID PRN 3 Days #9 tab 04/10/21 [Lomotil] Ondansetron Odt [Zofran Odt] 4 mg PO Q8HR PRN #10 tab 04/11/21 Allergies Allergy/AdvReac Type Severity Reaction Status Date / Time fluconazole [From Diflucan] Allergy Rash/Hives Verified 04/10/21 18:50 Review of Systems ROS Statement: Those systems with pertinent positive or pertinent negative responses have been documented in the HPI. ROS Other: All systems not noted in ROS Statement are negative. Past Medical History Past Medical History: No Reported History Additional Past Medical History / Comment(s): hemorrhoids, hx of anal fissure, hospitalized for rectal bleeding, fever & pain pt states diagnosed with sepsis and colitis and discharged 06/27/20., diarrhea. History of Any Multi-Drug Resistant Organisms: None Reported Past Surgical History: Section, Cholecystectomy, Hernia Repair, Hysterectomy Additional Past Surgical History / Comment(s): hemorrhoidectomy, umbilical hernia, Hysterectomy with inguinal hernia repair. Past Anesthesia/Blood Transfusion Reactions: Previous Problems w/ Anesthesia, Motion Sickness, Postoperative Nausea & Vomiting (PONV) Past Psychological History: Anxiety Smoking Status: Former smoker Past Alcohol Use History: None Reported Past Drug Use History: None Reported - Past Family History Sister(s) Additional Family Medical History / Comment(s): DEPRESSION Mother Family Medical History: Dementia, Diabetes Mellitus Son(s) Additional Family Medical History / Comment(s): ULCERATIVE COLITIS Daughter(s) Family Medical History: Cancer Additional Family Medical History / Comment(s): leukemia General Exam Limitations: no limitations (This is a well-developed, well-nourished female who presents in no acute distress. However patient is tearful and she reports her complaints. Initial temperature 98.1, pulse 88, respirations 20, blood pressure 117/77, pulse ox 100% on room air.) General appearance: alert, in no apparent distress Eye exam: Present: normal appearance, PERRL, EOMI. Absent: scleral icterus, conjunctival injection, periorbital swelling ENT exam: Present: normal exam, normal oropharynx, mucous membranes moist Respiratory exam: Present: normal lung sounds bilaterally. Absent: respiratory distress, wheezes, rales, rhonchi, stridor Cardiovascular Exam: Present: regular rate, normal rhythm, normal heart sounds. Absent: systolic murmur, diastolic murmur, rubs, gallop, clicks GI/Abdominal exam: Present: soft, normal bowel sounds. Absent: distended, tenderness, guarding, rebound, rigid Back exam: Absent: CVA tenderness (R), CVA tenderness (L) Neurological exam: Present: alert, oriented X3, CN II-XII intact Psychiatric exam: Present: anxious Skin exam: Present: warm, dry, intact, normal color. Absent: rash Course Vital Signs 04/10/21 04/10/21 04/11/21 13:47 22:17 00:00 Temperature 98.1 F 98.6 F Pulse Rate 88 66 72 Respiratory 20 18 18 Rate Blood Pressure 117/77 116/76 110/68 O2 Sat by Pulse 100 96 97 Oximetry Medical Decision Making - Medical Decision Making This is a 46-year-old Covid positive female who presents to the emergency department for evaluation of multiple complaints. Upon exam, patient appears fatigued and anxious, though is not short of breath or experiencing increased work of breathing. Patient is able to ambulate without difficulty. Complains of fever, chills, headache, diarrhea, intermittent chest tightness, and occasional episodes of vomiting. Patient is afebrile, not tachycardic, nor tachypneic. SpO2 is 95-100% on room air. EKG shows normal sinus rhythm with no ectopy. Laboratory studies are overall unremarkable and are consistent with viral illness and mild dehydration. D-dimer 0.29. Troponin negative. 3+ ketones present in urine. Chest x-ray shows subtle patchy bilateral opacities. Patient was given IV fluids, pain medicine, nausea medicine and oral steroid. Reports modest improvement, but is requesting admission. Informed that she does not meet admission criteria. Patient continues to decline monoclonal antibody infusion. We'll be discharged home to follow-up with her primary care provider and will be prescribed Lomotil for her diarrhea, Zofran for her nausea, and Decadron for her include pneumonia. Return parameters were discussed in detail. We attempted to provide patient with realistic expectations of viral illness course and duration. This patient's care was discussed with my attending Dr. Mosher. - Lab Data Result diagrams: 04/10/21 19:22 04/10/21 19:22 Lab Results 04/10/21 04/10/21 04/10/21 Range/Units 19:22 19:22 19:22 WBC 2.9 L (3.8-10.6) k/uL RBC 5.17 (3.80-5.40) m/uL Hgb 15.2 (11.4-16.0) gm/dL Hct 44.8 (34.0-46.0) % MCV 86.8 (80.0-100.0) fL MCH 29.4 (25.0-35.0) pg MCHC 33.9 (31.0-37.0) g/dL RDW 16.7 H (11.5-15.5) % Plt Count 162 (150-450) k/uL MPV 8.0 Neutrophils % 62 % Lymphocytes % 27 % Monocytes % 7 % Eosinophils % 0 % Basophils % 0 % Neutrophils # 1.8 (1.3-7.7) k/uL Lymphocytes # 0.8 L (1.0-4.8) k/uL Monocytes # 0.2 (0-1.0) k/uL Eosinophils # 0.0 (0-0.7) k/uL Basophils # 0.0 (0-0.2) k/uL Anisocytosis Slight D-Dimer 0.29 (<0.60) mg/L FEU Sodium 136 L (137-145) mmol/L Potassium 5.0 (3.5-5.1) mmol/L Chloride 104 (98-107) mmol/L Carbon Dioxide 22 (22-30) mmol/L Anion Gap 10 mmol/L BUN 10 (7-17) mg/dL Creatinine 0.55 (0.52-1.04) mg/dL Est GFR (CKD-EPI)AfAm >90 (>60 ml/min/1.73 sqM) Est GFR (CKD-EPI)NonAf >90 (>60 ml/min/1.73 sqM) Glucose 82 (74-99) mg/dL Calcium 9.0 (8.4-10.2) mg/dL Total Bilirubin 0.7 (0.2-1.3) mg/dL AST 76 H (14-36) U/L ALT 58 H (4-34) U/L Alkaline Phosphatase 52 (38-126) U/L Troponin I (0.000-0.034) ng/mL Total Protein 7.6 (6.3-8.2) g/dL Albumin 4.3 (3.5-5.0) g/dL Lipase 149 (23-300) U/L Urine Color Urine Appearance (Clear) Urine pH (5.0-8.0) Ur Specific Hope (1.001-1.035) Urine Protein (Negative) Urine Glucose (UA) (Negative) Urine Ketones (Negative) Urine Blood (Negative) Urine Nitrite (Negative) Urine Bilirubin (Negative) Urine Urobilinogen (<2.0) mg/dL Ur Leukocyte Esterase (Negative) Urine RBC (0-5) /hpf Urine WBC (0-5) /hpf Ur Squamous Epith Cells (0-4) /hpf Urine Mucus (None) /hpf 04/10/21 04/10/21 Range/Units 19:22 19:22 WBC (3.8-10.6) k/uL RBC (3.80-5.40) m/uL Hgb (11.4-16.0) gm/dL Hct (34.0-46.0) % MCV (80.0-100.0) fL MCH (25.0-35.0) pg MCHC (31.0-37.0) g/dL RDW (11.5-15.5) % Plt Count (150-450) k/uL MPV Neutrophils % % Lymphocytes % % Monocytes % % Eosinophils % % Basophils % % Neutrophils # (1.3-7.7) k/uL Lymphocytes # (1.0-4.8) k/uL Monocytes # (0-1.0) k/uL Eosinophils # (0-0.7) k/uL Basophils # (0-0.2) k/uL Anisocytosis D-Dimer (<0.60) mg/L FEU Sodium (137-145) mmol/L Potassium (3.5-5.1) mmol/L Chloride (98-107) mmol/L Carbon Dioxide (22-30) mmol/L Anion Gap mmol/L BUN (7-17) mg/dL Creatinine (0.52-1.04) mg/dL Est GFR (CKD-EPI)AfAm (>60 ml/min/1.73 sqM) Est GFR (CKD-EPI)NonAf (>60 ml/min/1.73 sqM) Glucose (74-99) mg/dL Calcium (8.4-10.2) mg/dL Total Bilirubin (0.2-1.3) mg/dL AST (14-36) U/L ALT (4-34) U/L Alkaline Phosphatase (38-126) U/L Troponin I <0.012 (0.000-0.034) ng/mL Total Protein (6.3-8.2) g/dL Albumin (3.5-5.0) g/dL Lipase (23-300) U/L Urine Color Yellow Urine Appearance Clear (Clear) Urine pH 6.0 (5.0-8.0) Ur Specific Hope 1.011 (1.001-1.035) Urine Protein Negative (Negative) Urine Glucose (UA) Negative (Negative) Urine Ketones 3+ H (Negative) Urine Blood Trace H (Negative) Urine Nitrite Negative (Negative) Urine Bilirubin Negative (Negative) Urine Urobilinogen <2.0 (<2.0) mg/dL Ur Leukocyte Esterase Negative (Negative) Urine RBC 2 (0-5) /hpf Urine WBC 1 (0-5) /hpf Ur Squamous Epith Cells 2 (0-4) /hpf Urine Mucus Rare H (None) /hpf - EKG Data EKG shows normal: sinus rhythm Rate: normal - Radiology Data Radiology results: report reviewed, image reviewed Two-view chest and KUB x-rays were obtained. Reports were reviewed in their entirety. Impression per Dr. Drew a subtle patchy bilateral opacities could relate to pneumonia in the appropriate clinical setting. Nonobstructive bowel gas pattern. No free intraperitoneal air. Disposition Clinical Impression: COVID-19, Dehydration, Diarrhea due to COVID-19, Pneumonia due to COVID-19 virus Disposition: HOME SELF-CARE Condition: Stable Instructions (If sedation given, give patient instructions): Coronavirus Disease 2019 (COVID-19), Dehydration (ED), Acute Diarrhea (ED) Additional Instructions: Increase fluids. Consider electrolyte solutions or coconut water. Alternate Tylenol and Motrin as needed for fever, body aches, or discomfort. Take oral steroids as directed. May take Lomotil for diarrhea. Follow-up with your primary care provider for recheck in the next 24-48 hours via telephoned or video conference. Return to the emergency department with any new, worsening, or concerning symptoms. Prescriptions: Dexamethasone [Decadron] 6 mg PO DAILY 10 Days #10 tablet Diphenox-Atrop 2.5-0.025 mg [Lomotil] 1 tab PO TID PRN 3 Days #9 tab PRN Reason: Diarrhea Ondansetron Odt [Zofran Odt] 4 mg PO Q8HR PRN #10 tab PRN Reason: Nausea Is patient prescribed a controlled substance at d/c from ED?: No Referrals: Helder Conde MD [Primary Care Provider] - 1-2 days Time of Disposition: 23:29
--- NOTE | 2021-04-10 19:52 | XR ---
EXAMINATION TYPE: XR chest 2V, XR KUB DATE OF EXAM: 04/10/2021 COMPARISON: NONE HISTORY: Chest tightness. TECHNIQUE: Frontal and lateral views of the chest are obtained. AP views of the abdomen were obtaine d. FINDINGS: CHEST: There subtle patchy opacity at the right greater than left base. The cardiomediastinal silhoue tte and pulmonary vasculature are within normal limits. The osseous structures are intact. ABDOMEN: Clips over the right hemiabdomen. Some gas-filled nondilated loops of large and small bowel. No Suspicious calcifications. No free intraperitoneal air. IMPRESSION: 1. Subtle patchy bilateral opacities could relate to pneumonia in the appropriate clinical setting. Nonobstructive bowel gas pattern. No free intraperitoneal air.
[2021-04-10 19:55] LABS: ALT 58 U/L (4-34); AST 76 U/L (14-36); African American GFR (CKD) >90 (>60 ml/min/1.73 sqM); Albumin 4.3 g/dL (3.5-5.0); Alkaline Phosphatase 52 U/L (38-126); Anion Gap 10 mmol/L; Blood Urea Nitrogen 10 mg/dL (7-17); Carbon Dioxide 22 mmol/L (22-30); Chloride 104 mmol/L (98-107); Glucose 82 mg/dL (74-99); Lipase 149 U/L (23-300); Non-African American GFR(CKD) >90 (>60 ml/min/1.73 sqM); Sodium 136 mmol/L (137-145); Total Bilirubin 0.7 mg/dL (0.2-1.3); Total Protein 7.6 g/dL (6.3-8.2)
[2021-04-10 20:10] LABS: Anisocytosis Slight; Basophils % (A) 0 %; Eosinophils % (A) 0 %; HCT 44.8 % (34.0-46.0); HGB 15.2 gm/dL (11.4-16.0); Lymphocytes # (A) 0.8 k/uL (1.0-4.8); Lymphocytes % (A) 27 %; MCH 29.4 pg (25.0-35.0); MCHC 33.9 g/dL (31.0-37.0); MCV 86.8 fL (80.0-100.0); Monocytes # (A) 0.2 k/uL (0-1.0); Monocytes % (A) 7 %; Neutrophils # (A) 1.8 k/uL (1.3-7.7); Neutrophils % (A) 62 %; Platelet Count 162 k/uL (150-450); RBC 5.17 m/uL (3.80-5.40); RDW 16.7 % (11.5-15.5); WBC 2.9 k/uL (3.8-10.6)
[2021-04-10] MEDS ORDERED: KETOROLAC 30 MG/ML 1 ML VIAL IVP STA (21:16)
[2021-04-10 21:40] LABS: Appearance,Urine Clear (Clear); Bilirubin,Urine Negative (Negative); Blood,Urine Trace (Negative); Color,Urine Yellow; Glucose,Urine (UA) Negative (Negative); Ketones,Urine 3+ (Negative); Leukocyte Esterase,Urine Negative (Negative); Mucus,Urine Rare /hpf; Nitrite,Urine Negative (Negative); Protein,Urine Negative (Negative); RBC,Urine 2 /hpf (0-5); Specific Gravity,Urine 1.011 (1.001-1.035); Squamous Epithelial Cell,Urine 2 /hpf (0-4); Urobilinogen,Urine <2.0 mg/dL (<2.0); WBC,Urine 1 /hpf (0-5)
[2021-04-10 22:19] VITALS: RESP 18
[2021-04-10] MEDS ORDERED: DIPHENOX-ATROP STARTER PACK 8 TAB BTL PO STA (23:19)
[2021-04-10] MEDS ORDERED: dexAMETHasone 2 MG TAB PO STA (23:20)
[2021-04-11 00:13] VITALS: BP 110/68; PULSE 72; TEMP 98.6
== END 2021-04-11 | disposition home or self-care (01) ==
LOC: EC 10:48
DX: U07.1 COVID-19 (principal); E86.0 Dehydration; J12.82 Pneumonia due to coronavirus disease 2019; A08.39 Other viral enteritis
CPT/HCPCS: 36415; 93005; 85379; 80053; 83690; 84484; 85025; 81001; 71046; 74018; 99285; 96374; 96375; 96376; J2405; J1885; J8540

== ENCOUNTER → 2021-05-17 | Outpatient (CLI) | payer BC ==
--- NOTE | 2021-05-18 09:00 | ECHOF ---
Referral Reason:I07.1 MEASUREMENTS -------- HEIGHT: 167.6 cm WEIGHT: 59.0 kg BP: RVIDd: 2.4 cm (< 3.3) IVSd: 0.8 cm (0.6 - 1.1) LVIDd: 3.7 cm (3.9 - 5.3) LVPWd: 1.1 cm (0.6 - 1.1) IVSs: 1.2 cm LVIDs: 2.1 cm LVPWs: 1.5 cm LAESV Index (A-L): 11.66 ml/m Ao Diam: 2.7 cm (2.0 - 3.7) AV Cusp: 1.9 cm (1.5 - 2.6) LA Diam: 2.1 cm (2.7 - 3.8) MV EXCURSION: 20.043 mm (> 18.000) MV EF SLOPE: 156 mm/s (70 - 150) EPSS: 0.3 cm MV E Jagdish: 0.91 m/s MV DecT: 132 ms MV A Jagdish: 0.73 m/s MV E/A Ratio: 1.24 RAP: 5.00 mmHg RVSP: 30.10 mmHg FINDINGS -------- This was a technically good study. The left ventricular size is normal. Left ventricular wall thickness is normal. Overall left vent ricular systolic function is normal with, an EF between 55 - 60 %. The diastolic filling pattern is normal for the age of the patient 8.25. The right ventricle is normal in size. The left atrial size is normal. Normal LA size by volume 22+/-6 ml/m2. The right atrial size is normal. The aortic valve is trileaflet and appears structurally normal. The mitral valve is normal. Mild mitral regurgitation is present. The tricuspid valve appears structurally normal. Trace tricuspid regurgitation present. Right samara tricular systolic pressure is normal at < 35 mmHg. There is no pulmonic regurgitation present. The aortic root size is normal. Normal inferior vena cava with normal inspiratory collapse consistent with estimated right atrial pre ssure of 5 mmHg. There is no pericardial effusion. CONCLUSIONS -------- 1. The left ventricular size is normal. 2. Left ventricular wall thickness is normal. 3. Overall left ventricular systolic function is normal with, an EF between 55 - 60 %. 4. The diastolic filling pattern is normal for the age of the patient 8.25 5. Mild mitral regurgitation is present. 6. Trace tricuspid regurgitation present. 7. There is no pericardial effusion. [employer]KER: Milagros Toth RDCS
== END | disposition home or self-care (01) ==
LOC: RADECHMAIN 16:24
PROVIDERS: ATTEND Family Medicine
DX: I08.1 Rheumatic disorders of both mitral and tricuspid valves (principal)
CPT/HCPCS: 93306

== ENCOUNTER → 2021-05-24 | Outpatient (CLI) | payer BC ==
--- NOTE | 2021-05-25 15:07 | US ---
EXAMINATION TYPE: US thyroid st tissue head/neck DATE OF EXAM: 05/24/2021 COMPARISON: CLINICAL HISTORY: E04.1 SINGLE THYROID NODULE. thyroid seen on other modality - incidental finding GLAND SIZE: Right Lobe: 3.8 x 1.4 x 1.8 cm Overall Parenchyma: homogenous Left Lobe: 4.0 x 1.5 x 1.5 cm Overall Parenchyma: homogeneous Isthmus Thickness: 0.2 cm NODULES RIGHT: # of nodules measured on right: 1 1. 1.8 X 1.5 x 1.4 cm, lower mid, solid or almost completely solid, hypoechoic nodule, which is wid er than tall, with smooth margins, without echogenic foci. TR 4 Prior size: no prior LEFT: # of nodules measured on left: 1 1. 1.0 X 0.9 x 0.7 cm, lower , mixed cystic and solid, hypoechoic nodule, which is wider than tall, with smooth margins, without echogenic foci. Prior size: no prior ISTHMUS: # of nodules measured in the isthmus: 0 Bilateral neck scanned, no evidence of lymphadenopathy. IMPRESSION: 1. Moderately suspicious nodule right lobe thyroid. Fine-needle aspiration recommended 2017 ACR TI-RADS LEVEL: TR-RADS 4 - Moderately Suspicious: Follow if > 1 cm, FNA if > 1.5 cm *Highest TI-RADS level nodule reported
== END | disposition home or self-care (01) ==
LOC: RADUSWWP 16:48
PROVIDERS: ATTEND Family Medicine
DX: E04.1 Nontoxic single thyroid nodule (principal)
CPT/HCPCS: 76536

== ENCOUNTER → 2024-03-04 | Outpatient (CLI) | payer BC ==
--- NOTE | 2024-03-04 15:48 | US ---
EXAMINATION TYPE: US thyroid st tissue head/neck DATE OF EXAM: 03/04/2024 COMPARISON: 05/24/2021 CLINICAL INDICATION: Female, 48 years old with history of E04.1 SINGLE THYROID NODULE; thyroid nodule s TECHNIQUE: Grayscale and color Doppler imaging of the thyroid gland. FINDINGS: GLAND SIZE: Right Lobe: 5.2 x 1.8 x 1.7 cm Overall Parenchyma: heterogeneous Left Lobe: 4.7 x 1.3 x 1.3 cm Overall Parenchyma: heterogeneous Isthmus Thickness: .18 cm NODULES RIGHT: # of nodules measured on right: 1 1. 1.8 X 1.5 x 1.4 cm, lower medial, solid or almost completely solid, hypoechoic nodule, which is wider than tall, with smooth margins, without echogenic foci. TR 4 Prior size: 1.8 x 1.4 x 1.5 cm LEFT: # of nodules measured on left: 1 1. 1.6 X 1.0 x 1.2 cm, lower , solid or almost completely solid, hypoechoic nodule, which is wider than tall, with smooth margins, without echogenic foci. TR 4 Prior size: 1.0 x .7 x .9 cm ISTHMUS: # of nodules measured in the isthmus: 0 Bilateral neck scanned, no evidence of lymphadenopathy. IMPRESSION: 1. Thyromegaly with findings suggestive of thyroiditis. Correlate clinically. 2. Stable right thyroid 1.8 cm TR 4 thyroid nodule which meets the criteria for FNA biopsy. 3. Interval increase in size of the 1.6 cm left thyroid TR 4 nodule which meets the criteria for FNA biopsy. 2017 ACR TI-RADS LEVEL: TR-RADS 4 - Moderately Suspicious: Follow if > 1 cm, FNA if > 1.5 cm *Highest TI-RADS level nodule reported [email or web address], , 03/04/2024 3:45 PM
== END | disposition home or self-care (01) ==
LOC: RADUSWWP 15:02
PROVIDERS: ATTEND Family Medicine
CPT/HCPCS: 76536